=== PATIENT | female | born 1960 | race African-American/Black ===

== ENCOUNTER 2017-09-15 01:30 | Inpatient (IN) | payer MEDICARE, OTHER ==
[~2017-09-15] VITALS: Ht 165.1 cm; Wt 98.0 kg
[2017-09-15] VITALS (19 sets, daily range): BP systolic 115–129; BP diastolic 67–78; PULSE 85–116; RESP 20–38; TEMP 98.1–99.7; O2SAT 93–99
[~2017-09-15 01:30] MED LIST: AMLO10TA2 PO; BLOOD GLUCOSE T1 TES; GLYB5TAB3 PO; LANCETS; LEVA750T PO; METF1000 PO; PRED5PAK2 PO; SYMB80AE INH; VENTAER INH
[2017-09-15] MEDS ORDERED: SODIUM CHLOR 0.9% 1000 ML INJ 1,000 ML IV ONE ×2 (02:03→03:45)
[2017-09-15] MEDS ORDERED: SODIUM CHLOR 0.9% 1000 ML INJ 800 ML IV ONE (02:03)
[2017-09-15] MEDS: RESP: ALBUTEROL 2.5 MG/IPRATROPIUM 0.5 MG NEB (SCH) INH ×2 (02:17→02:19)
--- NOTE | 2017-09-15 02:23 | PD ---
HPI Chief Complaint: Respiratory Symptoms Time Seen by Provider: 02:03 Travel History International Travel<30 days: No Contact w/Intl Traveler<30days: No Traveled to known affect area: No History of Present Illness HPI 57-year-old female with history of asthma here for evaluation of cough, generalized malaise, generalized weakness. Symptoms have been worsening over the last week. Cough is productive of yellowish sputum. She is unsure if she has had a fever. There are no sick contacts. PFSH Past Medical History Asthma: Yes Autoimmune Disease: Yes (SARCOIDOSIS) Cancer: No Cardiovascular Problems: Yes High Cholesterol: Yes COPD: No Diabetes: Yes Patient Takes Glucophage: No (states has not been taking) Diminished Hearing: No Endocrine: Yes Gastrointestinal Disorders: No Genitourinary: No Hypertension: Yes Immune Disorder: No Implanted Vascular Access Dvce: No Musculoskeletal: No Neurologic: Yes Psychiatric: No Reproductive: No Respiratory: Yes Immunizations Current: Yes Sickle Cell Disease: Yes (sickle cell trait) Sleep Apnea: Yes (HAS BI PAP AT NIGHT NOT LATELY) ?: Not : 3 Para: 2 Miscarriage: 1 Tubal Ligation: Yes Past Surgical History Section: Yes (X2) Eye Surgery: Yes (LASER ERIDOTOMY) Gynecologic Surgery: Yes (C SECTION) Other Surgery: Yes (SINUS SURGERY) Social History Alcohol Use: No Tobacco Use: No (quit 2004) Substance Use: No Allergies-Medications (Allergen,Severity, Reaction): Coded Allergies: ketorolac (Unverified Allergy, Severe, 09/15/17) lisinopril (Unverified Allergy, Severe, Anaphylaxis, 09/15/17) acetaminophen (Unverified Allergy, Unknown, 09/15/17) *MDRO Multi-Drug Resistant Organism (Unverified Adverse Reaction, Unknown , 09/15/17) MRSA (ET Sputum) - 07/2014 Reported Meds & Prescriptions Reported Meds & Active Scripts Active Prednisone (48) 5 mg tab Dose Pack (Prednisone) 5 Mg Dspk 5 Mg PO DIRECTED Lancets 26G Twist Top (Lancets) 1 Mis Mis 1 Ea .ROUTE DIRECTED Blood Glucose Test Strips 1 Rand Rand 1 Ea .ROUTE DIRECTED Glyburide 5 Mg Tab 5 Mg PO BID Take with meals at the same time each day Reported Ventolin Hfa 18 GM Inh (Albuterol Sulfate) 90 Mcg/Act Aer 1 Puff INH Q4H PRN Metformin (Metformin HCl) 1,000 Mg Tab 1,000 Mg PO BIDPC With meals Symbicort Inh (Budesonide/Formoterol Fumarate) 80-4.5 Mcg/Act Aero 2 Puff INH Q12HR Amlodipine (Amlodipine Besylate) 10 Mg Tab 10 Mg PO DAILY Review of Systems Except as stated in HPI: all other systems reviewed are Neg Physical Exam Narrative GENERAL: Well-developed, well-nourished, no apparent distress. SKIN: Focused skin assessment warm/dry. HEAD: Atraumatic. Normocephalic. EYES: Pupils equal and round. No scleral icterus. No injection or drainage. ENT: No nasal bleeding or discharge. Mucous membranes pink and moist. NECK: Trachea midline. No JVD. CARDIOVASCULAR: Tachycardic, rate 107, regular. RESPIRATORY: No accessory muscle use. Clear to auscultation. Breath sounds equal bilaterally. GASTROINTESTINAL: Abdomen soft, non-tender, nondistended. MUSCULOSKELETAL: No obvious deformities. No clubbing. No cyanosis. No edema. NEUROLOGICAL: Awake and alert. No obvious cranial nerve deficits. Motor grossly within normal limits. Normal speech. PSYCHIATRIC: Appropriate mood and affect; insight and judgment normal. Data Data Last Documented VS Vital Signs Date Time Temp Pulse Resp B/P (MAP) Pulse Ox O2 Delivery O2 Flow Rate FiO2 09/15/17 02:48 109 20 95 Aerosol Mask 09/15/17 02:15 3.00 09/15/17 01:34 98.5 127/70 (89) Orders Orders Sepsis Workup Initiated (09/15/17 ) Complete Blood Count With Diff (09/15/17 02:03) Comprehensive Metabolic Panel (09/15/17 02:03) Prothrombin Time / Inr (Pt) (09/15/17 02:03) Act Partial Throm Time (Ptt) (09/15/17 02:03) Lactic Acid Sepsis Protocol (09/15/17 02:03) Ckmb (Isoenzyme) Profile (09/15/17 02:03) Troponin I (09/15/17 02:03) Urinalysis - C+S If Indicated (09/15/17 02:03) Influenzae A/B Antigen (09/15/17 02:03) Blood Culture (09/15/17 02:03) Chest, Single Ap (09/15/17 02:03) Ecg Monitoring (09/15/17 02:03) Iv Access Insert/Monitor (09/15/17 02:03) Oximetry (09/15/17 02:03) Sodium Chlor 0.9% 1000 Ml Inj (Ns 1000 M (09/15/17 02:03) Sodium Chlor 0.9% 1000 Ml Inj (Ns 1000 M (09/15/17 02:03) Albuterol-Ipratropium Neb (Duoneb Neb) (09/15/17 02:15) Ceftriaxone Inj (Rocephin Inj) (09/15/17 03:00) Azithromycin Inj (Zithromax Inj) (09/15/17 03:00) B-Type Natriuretic Peptide (09/15/17 02:55) CKMB (09/15/17 02:15) CKMB% (09/15/17 02:15) Sodium Chlor 0.9% 1000 Ml Inj (Ns 1000 M (09/15/17 03:45) Software Tools Build Engineer / Telemetry [email or web address] (09/15/17 03:38) ^ Insert Iv (09/15/17 03:38) Diet Npo (09/15/17 Breakfast) Sodium Chlor 0.9% 1000 Ml Inj (Ns 1000 M (09/15/17 03:38) Dext 5%-Nacl 0.9% 1000 Ml Inj (D5w-Ns 10 (09/15/17 03:38) Insulin Human Regular Inj (Novolin R Inj (09/15/17 03:45) Insulin Regular (Iv Infusion) (Novolin R (09/15/17 03:45) Potassium Chlor 40 Meq Premix (Kcl 40 Me (09/15/17 03:45) Potassium Chlor 40 Meq Premix (Kcl 40 Me (09/15/17 03:45) Potassium Chlor 20 Meq Premix (Kcl 20 Me (09/15/17 03:45) Potassium Chlor 20 Meq Premix (Kcl 20 Me (09/15/17 03:45) Potassium Chlor 20 Meq Premix (Kcl 20 Me (09/15/17 03:45) Potassium Chlor 20 Meq Premix (Kcl 20 Me (09/15/17 03:45) Potassium Chlor 20 Meq Premix (Kcl 20 Me (09/15/17 03:45) Potassium Chlor 20 Meq Premix (Kcl 20 Me (09/15/17 03:45) Sodium Bicarbonate 8.4% Inj (Sodium Bica (09/15/17 03:45) Sodium Bicarbonate 8.4% Inj (Sodium Bica (09/15/17 03:45) Sodium Phosphate Inj (Sodium Phosphate I (09/15/17 03:45) Hemoglobin (Hgb) A1c (09/15/17 03:38) Basic Metabolic Panel (Bmp) (09/15/17 08:38) Basic Metabolic Panel (Bmp) (09/15/17 14:38) Basic Metabolic Panel (Bmp) (09/15/17 20:38) Basic Metabolic Panel (Bmp) (09/16/17 02:38) Magnesium (Mg) (09/15/17 08:38) Magnesium (Mg) (09/15/17 14:38) Magnesium (Mg) (09/15/17 20:38) Magnesium (Mg) (09/16/17 02:38) Phosphorus (Po4) (09/15/17 08:38) Phosphorus (Po4) (09/15/17 14:38) Phosphorus (Po4) (09/15/17 20:38) Phosphorus (Po4) (09/16/17 02:38) Beta Hydroxybutyrate (Acetone) (09/15/17 14:38) Beta Hydroxybutyrate (Acetone) (09/16/17 02:38) Blood Gas Venous (Vbg) (09/15/17 03:38) Insulin Regular (Iv Infusion) (Novolin R (09/15/17 04:15) Labs Laboratory Tests Test 09/15/17 02:15 09/15/17 03:38 White Blood Count 6.8 TH/MM3 Red Blood Count 4.60 MIL/MM3 Hemoglobin 12.1 GM/DL Hematocrit 41.1 % Mean Corpuscular Volume 89.3 FL Mean Corpuscular Hemoglobin 26.3 PG Mean Corpuscular Hemoglobin Concent 29.4 % Red Cell Distribution Width 17.1 % Platelet Count 203 TH/MM3 Mean Platelet Volume 10.8 FL Neutrophils (%) (Auto) 64.1 % Lymphocytes (%) (Auto) 12.7 % Monocytes (%) (Auto) 22.8 % Eosinophils (%) (Auto) 0.1 % Basophils (%) (Auto) 0.3 % Neutrophils # (Auto) 4.4 TH/MM3 Lymphocytes # (Auto) 0.9 TH/MM3 Monocytes # (Auto) 1.5 TH/MM3 Eosinophils # (Auto) 0.0 TH/MM3 Basophils # (Auto) 0.0 TH/MM3 CBC Comment AUTO DIFF Differential Total Cells Counted 100 Neutrophils % (Manual) 39 % Band Neutrophils % 24 % Lymphocytes % 13 % Monocytes % 18 % Neutrophils # (Manual) 4.7 TH/MM3 Metamyelocytes 6 % Nucleated Red Blood Cells 1 /100 WBC Differential Comment FINAL DIFF MANUAL Toxic Vacuolation Dohle Bodies PRESENT Platelet Estimate NORMAL Platelet Morphology Comment NORMAL Red Cell Morphology Comment NORMAL Prothrombin Time 10.0 SEC Prothromb Time International Ratio 1.0 RATIO Activated Partial Thromboplast Time 30.1 SEC Blood Urea Nitrogen 32 MG/DL Creatinine 2.74 MG/DL Random Glucose 1275 MG/DL Total Protein 9.3 GM/DL Albumin 2.7 GM/DL Calcium Level 9.4 MG/DL Alkaline Phosphatase 110 U/L Aspartate Amino Transf (AST/SGOT) 12 U/L Alanine Aminotransferase (ALT/SGPT) 15 U/L Total Bilirubin 1.0 MG/DL Sodium Level 130 MEQ/L Potassium Level 4.5 MEQ/L Chloride Level 94 MEQ/L Carbon Dioxide Level 19.7 MEQ/L Anion Gap 16 MEQ/L Estimat Glomerular Filtration Rate 22 ML/MIN Lactic Acid Level 3.0 mmol/L Total Creatine Kinase 317 U/L Creatine Kinase MB 1.6 NG/ML Creatine Kinase MB % 0.5 % Troponin I LESS THAN 0.02 NG/ML Blood Gas Puncture Site Blood Gas Patient Temperature 98.6 Venous Blood pH 7.23 Venous Blood Partial Pressure CO2 48 mmHg Venous Blood Partial Pressure O2 25 mmHg Venous Blood HCO3 19 mmol/L Venous Blood Oxygen Saturation 35 % Venous Blood Oxygen Content 5.9 Vol % Venous Blood Base Excess -7.0 mmol/L Oxygen Delivery Device NASAL CANNULA Blood Gas Liter Flow 3 L/M MDM Medical Decision Making Medical Screen Exam Complete: Yes Emergency Medical Condition: Yes Medical Record Reviewed: Yes Differential Diagnosis Sepsis, pneumonia, PE, asthma exacerbation, bronchitis, ACS Narrative Course Initial vital signs show heart rate 160, blood pressure 127/70, pulse ox 93% on room air, oral temperature 98.5F. CBC: WBC 6.8, hemoglobin 12.1, hematocrit 41.1, platelets 203, band neutrophils 24%. CMP is remarkable for random glucose 1275, sodium 130, chloride 94, bicarb 19.7 , anion gap 16, BUN 32, creatinine 2.74, GFR 22, Lactic acid is 3.0. Chest x-ray: Bilateral lower lung zone pulmonary consolidation. Differential includes infection and pulmonary edema. Patient was given IV Rocephin and IV azithromycin. She was also provided 3 DuoNeb treatments with improvement in her respiratory status. She was given 3 L normal saline IV and started on a DKA protocol. Both the patient and the patient's daughter were made aware of all findings and plan for admission to the ICU for further treatment and evaluation. The patient states that she has not been on her oral hypoglycemics for about a month. Case discussed with distributing clerk Dr. Sanon who will admit the patient to his service. Critical Care Narrative Aggregate critical care time was 40 minutes. Time to perform other separately billable procedures was not included in the critical care time. My time did not include minutes spent treating any other patients simultaneously or on activities that did not directly contribute to the patient's treatment. The services I provided to this patient were to treat and/or prevent clinically significant deterioration that could result in: , permanent disability, worsening clinical condition, septic shock I provided critical care services requiring my management, as noted below: Chart data review, documentation time, medication orders and management, vital sign assessments/reviewing monitor data, ordering and reviewing lab tests, ordering and interpreting/reviewing x-rays and diagnostic studies, care of the patient and discussion of the patient with the admitting physicians. Diagnosis Primary Impression: Severe sepsis Additional Impressions: Pneumonia Qualified Codes: J18.9 - Pneumonia, unspecified organism Hyperglycemia Acute kidney injury Admitting Information Admitting Physician Requests: Admit Tiago Sheppard MD Sep 15, 2017 02:23
--- NOTE | 2017-09-15 02:42 | RADRPT ---
EXAM DATE/TIME: 09/15/2017 02:15 [facility] COMPARISON: CHEST SINGLE AP, May 09, 2016, 9:06. INDICATIONS : Cough, shortness of breath, weakness. MEDICAL HISTORY : Hypercholesterolemia. Hypertension Diabetes, Sickle cell, Asthma, SURGICAL HISTORY : Tubal ligation. section. ENCOUNTER: Initial ACUITY: 3 days PAIN SCORE: 2/10 LOCATION: Bilateral chest FINDINGS: 2 AP views of the chest. Moderate severity symmetric bilateral lower lung zone parenchymal opacity. F inding is similar to the prior study of April 2016. No evidence of pleural effusion or pneumothora x. Cardiomediastinal silhouette within normal limits. CONCLUSION: Bilateral lower lung zone pulmonary consolidation. Differential diagnosis includes infection and pulm onary edema. Barry Mittal MD on September 15, 2017 at 2:37 Board Certified Radiologist. This report was verified electronically.
[2017-09-15 02:49] LABS: AUTOMATED NEUTROPHIL # 4.4 TH/MM3 (1.8-7.7); BASOPHIL % 0.3 % (0.0-2.0); EOSINOPHIL % 0.1 % (0.0-4.0); HEMATOCRIT 41.1 % (35.0-46.0); HEMOGLOBIN 12.1 GM/DL (11.6-15.3); LYMPH % 12.7 % (9.0-44.0); LYMPHOCYTE # 0.9 TH/MM3 (1.0-4.8); MEAN CELL VOLUME 89.3 FL (80.0-100.0); MEAN CORPUSCULAR HEMOGLOBIN 26.3 PG (27.0-34.0); MEAN PLATELET VOLUME 10.8 FL (7.0-11.0); MONO % 22.8 % (0.0-8.0); MONOCYTE # 1.5 TH/MM3 (0-0.9); NEUT % 64.1 % (16.0-70.0); PLATELET COUNT 203 TH/MM3 (150-450); RED CELL DISTRIBUTION WIDTH 17.1 % (11.6-17.2); WHITE BLOOD COUNT 6.8 TH/MM3 (4.0-11.0)
[2017-09-15 02:52] LABS: MEAN CORPUSCULAR HGB CONC 29.4 % (32.0-36.0)
[2017-09-15] MEDS ORDERED: AZITHROMYCIN INJ 500 MG in SODIUM CHLOR 0.9% 250 ML INJ 250 ML IV ONE (03:00)
[2017-09-15] MEDS ORDERED: cefTRIAXone INJ 1,000 MG in SODIUM CHLORIDE 0.9% INJ 100 ML IV ONE (03:00)
[2017-09-15 03:13] LABS: AST (GOT) 12 U/L (15-37); BICARBONATE 19.7 MEQ/L (21.0-32.0); BLOOD UREA NITROGEN 32 MG/DL (7-18); CALCIUM 9.4 MG/DL (8.5-10.1); CHLORIDE 94 MEQ/L (98-107); CREATININE 2.74 MG/DL (0.50-1.00); GLOMERULAR FILTRATION RATE 22 ML/MIN (>89); SODIUM (NA) 130 MEQ/L (136-145)
[2017-09-15 03:27] LABS: ALKALINE PHOSPHATASE 110 U/L (45-117); ALT (GPT) 15 U/L (10-53); TOTAL PROTEIN 9.3 GM/DL (6.4-8.2); TROPONIN I LESS THAN 0.02 NG/ML (0.02-0.05)
[2017-09-15 03:32] LABS: GLUCOSE,RANDOM 1275 MG/DL (74-106)
[2017-09-15 03:34] LABS: BANDS 24 % (0-6); CORRECTED NUCLEATED RBC 1 /100 WBC (0-0); DOHLE BODIES PRESENT (NONE SEEN); LYMPHOCYTES 13 % (9-44); METAMYELOCYTES 6 % (0-1); MONOCYTES 18 % (0-8); NEUTROPHIL # MANUAL DIFF 4.7 TH/MM3 (1.8-7.7); NUCLEATED RED BLOOD CELL 1 (0-0); POLYS (SEG NEUTROPHILS) 39 % (16-70)
[2017-09-15 03:36] LABS: ALBUMIN 2.7 GM/DL (3.4-5.0)
[2017-09-15] MEDS ORDERED: DEXT 5%-NACL 0.9% 1000 ML INJ 1,000 ML IV SCH (03:38)
[2017-09-15] MEDS ORDERED: SODIUM BICARBONATE 8.4% SOLN 50 MEQ/50 ML VIAL IV PUSH PRN ×2 (03:45)
[2017-09-15] MEDS ORDERED: POTASSIUM CHLOR 40 MEQ PREMIX 100 ML IV PRN ×2 (03:45)
[2017-09-15] MEDS ORDERED: INSULIN HUMAN REGULAR 1,000 UNITS/10 ML VIAL IV PUSH ONE (03:45)
[2017-09-15] MEDS ORDERED: SODIUM PHOSPHATE INJ 15 MMOL in SODIUM CHLORIDE 0.9% INJ 100 ML IV PRN (03:45)
[2017-09-15] MEDS ORDERED: INSULIN REGULAR (IV INFUSION) 100 UNITS in SODIUM CHLORIDE 0.9% INJ 99 ML IV PRN ×3 (03:45→10:30)
[2017-09-15] MEDS ORDERED: POTASSIUM CHLOR 20 MEQ PREMIX 100 ML IV PRN ×6 (03:45)
[2017-09-15] MEDS ORDERED: ONDANSETRON HCL 4 MG/2 ML VIAL IV PUSH ONE (04:30)
[2017-09-15] MEDS: SODIUM CHLOR 0.9% 1000 ML INJ 1,000 ML IV SCH ×4 (04:45→15:34)
[2017-09-15 05:10] LABS: BILIRUBIN, URINE NEG (NEG); BLOOD, URINE SMALL (NEG); GLUCOSE,URINE 1000 mg/dL (NEG); KETONE, URINE 10 mg/dL (NEG); NITRITE,URINE NEG (NEG); URINE COLOR COLORLESS (YELLW/STRAW); URINE LEUKOCYTE ESTERASE NEG (NEG)
[2017-09-15] MEDS ORDERED: RESP: ALBUTEROL 2.5 MG/IPRATROPIUM 0.5 MG NEB (PRN) INH (05:15)
[2017-09-15] MEDS ORDERED: MISCELLANEOUS NURSING INFORMATION XX SCH (05:15)
[2017-09-15] MEDS ORDERED: CHLORHEXIDINE GLUCONATE 2 % 1 PACK (2 CLOTHS) TOP PRN (05:15)
[2017-09-15] MEDS ORDERED: SODIUM CHLORIDE 0.9% FLUSH 10 ML FLUSH IV FLUSH PRN (05:15)
--- NOTE | 2017-09-15 06:04 | HHI.HP ---
HPI Service Critical Care Medicine Primary Care Physician No Primary Care Physician Admission Diagnosis Sepsis, pneumonia, DKA Diagnosis: Chief Complaint: altered mental status, shortness of breath Travel History International Travel<30 Days: No Contact w/Intl Traveler <30 Da: No Traveled to Known Affected Are: No Sepsis Criteria SIRS Criteria (2 or more): Heart rate over 90, WBC > 66560, < 4000 or > 10% bands Sepsis Criteria (SIRS+source): Infect source susp/known Severe Sepsis (+one): Lactate >2 Criteria Outcome: Meets severe sepsis criteria History of Present Illness HPI 57-year-old female with history of asthma here for evaluation of cough, generalized malaise, generalized weakness. Symptoms have been worsening over the last week. Cough is productive of yellowish sputum. She is unsure if she has had a fever. There are no sick contacts. Patient was noted to have blood glucose around 1200 mg percent in the ER and a right lower lobe pneumonia. She did have an anion gap metabolic acidosis with an elevated lactic acid. Patient was started on DKA protocol with insulin drip and received about 3 L of normal saline IV fluid. She'll also initiated on empiric antibiotics with Rocephin and Zithromax. Patient was accepted for admission by critical care medicine service. When I evaluated the patient in the ER she was laying in the ER stretcher. She had a productive cough. She did not appear slightly tachypneic however not in major distress. She was requesting something to drink and said that she was feeling extremely thirsty. She reportedly stopped taking her oral hypoglycemic medications about a month ago. History PFSH Past Medical History Asthma: Yes Autoimmune Disease: Yes (SARCOIDOSIS) Cancer: No Cardiovascular Problems: Yes High Cholesterol: Yes COPD: No Diabetes: Yes Patient Takes Glucophage: No (states has not been taking) Diminished Hearing: No Endocrine: Yes Gastrointestinal Disorders: No Genitourinary: No Hypertension: Yes Immune Disorder: No Implanted Vascular Access Dvce: No Musculoskeletal: No Neurologic: Yes Psychiatric: No Reproductive: No Respiratory: Yes Immunizations Current: Yes Sickle Cell Disease: Yes (sickle cell trait) Sleep Apnea: Yes (HAS BI PAP AT NIGHT NOT LATELY) ?: Not : 3 Para: 2 Miscarriage: 1 Tubal Ligation: Yes Past Surgical History Section: Yes (X2) Eye Surgery: Yes (LASER ERIDOTOMY) Gynecologic Surgery: Yes (C SECTION) Other Surgery: Yes (SINUS SURGERY) Social History Alcohol Use: No Tobacco Use: No (quit 2004) Substance Use: No Allergies-Medications Allergies-Medications (Allergen,Severity, Reaction): Coded Allergies: ketorolac (Unverified Allergy, Severe, 09/15/17) lisinopril (Unverified Allergy, Severe, Anaphylaxis, 09/15/17) acetaminophen (Unverified Allergy, Unknown, 09/15/17) *MDRO Multi-Drug Resistant Organism (Unverified Adverse Reaction, Unknown , 09/15/17) MRSA (ET Sputum) - 07/2014 Reported Meds & Prescriptions Reported Meds & Active Scripts Active Prednisone (48) 5 mg tab Dose Pack (Prednisone) 5 Mg Dspk 5 Mg PO DIRECTED Lancets 26G Twist Top (Lancets) 1 Mis Mis 1 Ea .ROUTE DIRECTED Blood Glucose Test Strips 1 Rand Rand 1 Ea .ROUTE DIRECTED Glyburide 5 Mg Tab 5 Mg PO BID Take with meals at the same time each day Reported Ventolin Hfa 18 GM Inh (Albuterol Sulfate) 90 Mcg/Act Aer 1 Puff INH Q4H PRN Metformin (Metformin HCl) 1,000 Mg Tab 1,000 Mg PO BIDPC With meals Symbicort Inh (Budesonide/Formoterol Fumarate) 80-4.5 Mcg/Act Aero 2 Puff INH Q12HR Amlodipine (Amlodipine Besylate) 10 Mg Tab 10 Mg PO DAILY ROS Review of Systems Except as stated in HPI: all other systems reviewed are Neg Physical Exam Vital Signs Vital Signs Date Time Temp Pulse Resp B/P (MAP) Pulse Ox O2 Delivery O2 Flow Rate FiO2 09/15/17 04:59 111 20 123/77 (92) 96 Nasal Cannula 4.00 09/15/17 02:48 109 20 95 Aerosol Mask 09/15/17 02:15 97 Nasal Cannula 3.00 09/15/17 01:55 94 Nasal Cannula 4.00 09/15/17 01:34 98.5 116 28 127/70 (89) 93 Physical Exam Narrative GENERAL: Well-developed, well-nourished, no apparent distress. SKIN: Focused skin assessment warm/dry. HEAD: Atraumatic. Normocephalic. EYES: Pupils equal and round. No scleral icterus. No injection or drainage. ENT: No nasal bleeding or discharge. Mucous membranes pink and moist. NECK: Trachea midline. No JVD. CARDIOVASCULAR: Tachycardic, rate 107, regular. RESPIRATORY: No accessory muscle use. Good air entry bilaterally, scattered rhonchi more on the right, no wheezing or crackles GASTROINTESTINAL: Abdomen soft, non-tender, nondistended. MUSCULOSKELETAL: No obvious deformities. No clubbing. No cyanosis. No edema. NEUROLOGICAL: Awake and alert. No obvious cranial nerve deficits. Motor grossly within normal limits. Normal speech. PSYCHIATRIC: Appropriate mood and affect; insight and judgment normal. Laboratory Laboratory Tests Test 09/15/17 02:15 09/15/17 03:38 09/15/17 04:34 09/15/17 05:26 White Blood Count 6.8 Red Blood Count 4.60 Hemoglobin 12.1 Hematocrit 41.1 Mean Corpuscular Volume 89.3 Mean Corpuscular Hemoglobin 26.3 Mean Corpuscular Hemoglobin Concent 29.4 Red Cell Distribution Width 17.1 Platelet Count 203 Mean Platelet Volume 10.8 Neutrophils (%) (Auto) 64.1 Lymphocytes (%) (Auto) 12.7 Monocytes (%) (Auto) 22.8 Eosinophils (%) (Auto) 0.1 Basophils (%) (Auto) 0.3 Neutrophils # (Auto) 4.4 Lymphocytes # (Auto) 0.9 Monocytes # (Auto) 1.5 Eosinophils # (Auto) 0.0 Basophils # (Auto) 0.0 CBC Comment AUTO DIFF Differential Total Cells Counted 100 Neutrophils % (Manual) 39 Band Neutrophils % 24 Lymphocytes % 13 Monocytes % 18 Neutrophils # (Manual) 4.7 Metamyelocytes 6 Nucleated Red Blood Cells 1 Differential Comment FINAL DIFF MANUAL Toxic Vacuolation Dohle Bodies PRESENT Platelet Estimate NORMAL Platelet Morphology Comment NORMAL Red Cell Morphology Comment NORMAL Prothrombin Time 10.0 Prothromb Time International Ratio 1.0 Activated Partial Thromboplast Time 30.1 Blood Urea Nitrogen 32 Creatinine 2.74 Random Glucose 1275 Total Protein 9.3 Albumin 2.7 Calcium Level 9.4 Alkaline Phosphatase 110 Aspartate Amino Transf (AST/SGOT) 12 Alanine Aminotransferase (ALT/SGPT) 15 Total Bilirubin 1.0 Sodium Level 130 Potassium Level 4.5 Chloride Level 94 Carbon Dioxide Level 19.7 Anion Gap 16 Estimat Glomerular Filtration Rate 22 Lactic Acid Level 3.0 Total Creatine Kinase 317 Creatine Kinase MB 1.6 Creatine Kinase MB % 0.5 Troponin I LESS THAN 0.02 B-Type Natriuretic Peptide 4 Blood Gas Puncture Site Blood Gas Patient Temperature 98.6 Venous Blood pH 7.23 Venous Blood Partial Pressure CO2 48 Venous Blood Partial Pressure O2 25 Venous Blood HCO3 19 Venous Blood Oxygen Saturation 35 Venous Blood Oxygen Content 5.9 Venous Blood Base Excess -7.0 Oxygen Delivery Device NASAL CANNULA Blood Gas Liter Flow 3 Urine Color COLORLESS Urine Turbidity CLEAR Urine pH 5.0 Urine Specific [place] 1.027 Urine Protein TRACE Urine Glucose (UA) 1000 Urine Ketones 10 Urine Occult Blood SMALL Urine Nitrite NEG Urine Bilirubin NEG Urine Urobilinogen LESS THAN 2.0 Urine Leukocyte Esterase NEG Urine RBC LESS THAN 1 Microscopic Urinalysis Comment CATH-CULT NOT IND Date/Time Source Procedure Growth Status 09/15/17 02:15 Blood Peripheral Aerobic Blood Culture Pending Received 09/15/17 02:15 Blood Peripheral Anaerobic Blood Culture Pending Received 09/15/17 02:15 Nasal Washing Influenza Types A,B Antigen (FANY) - Final NEGATIVE FOR FLU A AND B ANTIGEN.... Complete 09/15/17 04:34 Urine Catheterized Urine Legionella Antigen Pending Received 09/15/17 04:34 Urine Catheterized Urine Streptococcus pneumoniae Antigen (M Pending Received Result Diagram: 09/15/17 0215 09/15/17 0215 Septic Shock Reassessment Septic shock perfusion: reassessment completed Caprini VTE Risk Assessment Caprini VTE Risk Assessment: Mod/High Risk (score >= 2) Caprini Risk Assessment Model Point Value = 1 Point Value = 2 Point Value = 3 Point Value = 5 Age 41-60 Minor surgery BMI > 25 kg/m2 Swollen legs Varicose veins or History of unexplained or recurrent spontaneous Oral contraceptives or hormone replacement Sepsis (< 1 month) Serious lung disease, including pneumonia (< 1 month) Abnormal pulmonary function Acute myocardial infarction Congestive heart failure (< 1 month) History of inflammatory bowel disease Medical patient at bed rest Age 61-74 Arthroscopic surgery Major open surgery (> 45 min) Laparoscopic surgery (> 45 min) Malignancy Confined to bed (> 72 hours) Immobilizing plaster cast Central venous access Age >= 75 History of VTE Family history of VTE Factor V Leiden Prothrombin [id number] Lupus anticoagulant Anticardiolipin antibodies Elevated serum homocysteine Heparin-induced thrombocytopenia Other congenital or acquired thrombophilia Stroke (< 1 month) Elective arthroplasty Hip, pelvis, or leg fracture Acute spinal cord injury (< 1 month) Prophylaxis Regimen Total Risk Factor Score Risk Level Prophylaxis Regimen 0-1 Low Early ambulation 2 Moderate Order ONE of the following: *Sequential Compression Device (SCD) *Heparin 5000 units SQ BID 3-4 Higher Order ONE of the following medications: *Heparin 5000 units SQ TID *Enoxaparin/Lovenox 40 mg SQ daily (WT < 150 kg, CrCl > 30 mL/min) *Enoxaparin/Lovenox 30 mg SQ daily (WT < 150 kg, CrCl > 10-29 mL/min) *Enoxaparin/Lovenox 30 mg SQ BID (WT < 150 kg, CrCl > 30 mL/min) AND/OR *Sequential Compression Device (SCD) 5 or more Highest Order ONE of the following medications: *Heparin 5000 units SQ TID (Preferred with Epidurals) *Enoxaparin/Lovenox 40 mg SQ daily (WT < 150 kg, CrCl > 30 mL/min) *Enoxaparin/Lovenox 30 mg SQ daily (WT < 150 kg, CrCl > 10-29 mL/min) *Enoxaparin/Lovenox 30 mg SQ BID (WT < 150 kg, CrCl > 30 mL/min) AND *Sequential Compression Device (SCD) Assessment and Plan Assessment and Plan 57-year-old female with: Uncontrolled diabetes mellitus with hyperosmolar state Anion gap metabolic acidosis Hyperlipidemia Sepsis Pneumonia History of sarcoidosis Hypertension Obstructive sleep apnea syndrome Plan: Neuro: Follow neuro status. Cardiovascular: Fluid resuscitation, watch for hypotension. Hold antihypertensives currently. Pulmonary: Supplemental O2, bronchodilators. ID: Follow-up blood cultures. Sputum cultures ordered. Check urine for strep pneumo and Legionella antigen. Check nasal washings for influenza A and B. Empiric antibiotic coverage with IV Rocephin and Zithromax. Renal/: IV hydration, strict intake output, monitor and replete elect lites, follow BUN creatinine. Heme: Follow CBC Endocrine: Continue DKA protocol with insulin drip. Prophylaxis: SCDs, Lovenox Condition critical Time spent on critical care excluding procedures 50 minutes Johann Sanon MD Sep 15, 2017 06:04
[2017-09-15] MEDS ORDERED: SODIUM CHLOR 0.45% 1000 ML INJ 1,000 ML IV ONE (06:15)
[2017-09-15] MEDS: CHLORHEXIDINE 0.12% (ORAL KIT) 15 ML CUP MT SCH ×2 (08:00→19:28)
[2017-09-15] MEDS: RESP: ALBUTEROL 2.5 MG/IPRATROPIUM 0.5 MG NEB (SCH) NEB ×3 (09:03→19:44)
[2017-09-15 09:35] LABS: ALBUMIN 2.6 GM/DL (3.4-5.0); ALKALINE PHOSPHATASE 101 U/L (45-117); ALT (GPT) 12 U/L (10-53); AST (GOT) 11 U/L (15-37); BICARBONATE 22.1 MEQ/L (21.0-32.0); BLOOD UREA NITROGEN 26 MG/DL (7-18); CALCIUM 8.7 MG/DL (8.5-10.1); CHLORIDE 109 MEQ/L (98-107); GLOMERULAR FILTRATION RATE 28 ML/MIN (>89); MAGNESIUM 2.7 MG/DL (1.5-2.5); PHOSPHORUS 1.7 MG/DL (2.5-4.9); SODIUM (NA) 141 MEQ/L (136-145); TOTAL BILIRUBIN ADULT 0.5 MG/DL (0.2-1.0); TOTAL PROTEIN 8.4 GM/DL (6.4-8.2)
[2017-09-15] MEDS: SODIUM CHLORIDE 0.9% FLUSH 10 ML FLUSH IV FLUSH SCH ×2 (09:38→21:25)
[2017-09-15] MEDS: ENOXAPARIN SODIUM 30 MG/0.3 ML SYRINGE SQ SCH (09:40)
[2017-09-15] MEDS: FAMOTIDINE 20 MG TAB PO SCH ×2 (09:40→21:25)
[2017-09-15 09:41] LABS: GLUCOSE,RANDOM 713 MG/DL (74-106)
[2017-09-15] MEDS ORDERED: DC Insulin drip 2 hrs post basal insulin dose ONE (09:45)
[2017-09-15] MEDS ORDERED: INSULIN DETEMIR 100 UNITS/ML VIAL SQ SCH ×2 (09:45→11:00)
[2017-09-15] MEDS ORDERED: DC previous DKA orders (HMC 1917) ONE (09:45)
[2017-09-15] MEDS ORDERED: GLUCAGON 1 MG/ML VIAL OTHER PRN ×3 (09:45→20:30)
[2017-09-15] MEDS ORDERED: DEXTROSE 50% IN WATER 50 ML VIAL(D50) IV PUSH PRN ×3 (09:45→20:30)
[2017-09-15] MEDS ORDERED: SODIUM PHOSPHATE INJ 30 MMOL in SODIUM CHLOR 0.9% 250 ML INJ 250 ML IV ONE (10:45)
[2017-09-15] MEDS: methylPREDNISolone SOD SUCC 40 MG/1 ML VIAL IV PUSH SCH ×2 (10:49→21:25)
[2017-09-15] MEDS ORDERED: RESP: ALBUTEROL 2.5 MG/3 ML NEB (PRN) NEB (11:00)
[2017-09-15] MEDS: INSULIN ASPART SUPPLEMENTAL SCALE SQ SCH ×3 (12:57→21:26)
--- NOTE | 2017-09-15 16:10 | EKG ---
Date Performed: 09/15/2017 Time Performed: 01:55:57 PTAGE: 57 years EKG: SINUS TACHYCARDIA POSSIBLE LEFT ATRIAL ENLARGEMENT ABNORMAL RHYTHM ECG NO PREVIOUS TRACING DOCTOR: Wander Craig Interpretating Date/Time 09/15/2017 16:09:29
[2017-09-15 18:04] LABS: BICARBONATE 21.8 MEQ/L (21.0-32.0); BLOOD UREA NITROGEN 19 MG/DL (7-18); CALCIUM 8.4 MG/DL (8.5-10.1); CHLORIDE 113 MEQ/L (98-107); CREATININE 1.56 MG/DL (0.50-1.00); GLOMERULAR FILTRATION RATE 42 ML/MIN (>89); GLUCOSE,RANDOM 406 MG/DL (74-106); MAGNESIUM 2.3 MG/DL (1.5-2.5); PHOSPHORUS 2.9 MG/DL (2.5-4.9); SODIUM (NA) 143 MEQ/L (136-145)
--- NOTE | 2017-09-15 19:19 | MB ---
cc: Wilbert Alberto MD DATE: 09/15/2017 DATE OF CONSULTATION: 09/15/2017 REQUESTING PHYSICIAN: Dr. Johann Sanon. REASON FOR CONSULTATION: Bronchial asthma exacerbation and sarcoidosis. HISTORY OF PRESENT ILLNESS: Ms. Khan is a 57-year-old female with a history of COPD, bronchial asthma and history of sarcoidosis. She is not sure how she was diagnosed. She never had any biopsy done. She does have bad asthma and has had bronchial thermoplasty done. She has a history of diabetes mellitus and recently she quit taking her medication because she did not get along with her primary care doctor. The patient came to the hospital with worsening shortness of breath, generalized malaise and weakness. She was evaluated in the hospital and was found to have DKA; her blood sugar was more than 1200. The patient was started on IV fluids, IV insulin drip. Now her sugar is better and drip is weaned off. LABORATORY DATA: Chest x-ray shows bilateral lower lung zone pulmonary consolidation. Her CBC showed WBC count 6.8, hemoglobin 12.1, hematocrit 41.0, MCV 89, platelet count 203. Sodium 143, potassium 4.5, chloride 113, CO2 of 21, BUN 19, creatinine 1.56. PAST MEDICAL HISTORY: Significant for history of diabetes mellitus, bronchial asthma, status post bronchial thermoplasty, sarcoidosis, . MEDICATIONS: She is currently taking Zithromax 500 mg a day, Rocephin 1 g a day, Symbicort 80/4.5 two puffs twice a day, Solu-Medrol 40 mg q. 12 hours, insulin 7 units, albuterol and Atrovent nebulizer treatment, Lovenox 30 mg a day, famotidine 10 mg twice a day. ALLERGIES: SHE IS ALLERGIC TO ACETAMINOPHEN, KETOROLAC, LISINOPRIL. SOCIAL HISTORY: She is single and lives with her daughter, has a history of smoking, which she quit a few years ago. No alcohol abuse. 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 FAMILY HISTORY: She has 3 children. REVIEW OF SYSTEMS: Normally she is up around and active. No seizure, stroke or epilepsy. PHYSICAL EXAMINATION: GENERAL: Well-built, well-nourished female, not in any acute distress. VITAL SIGNS: Her blood pressure is 115/70, heart rate 101, respirations 24, temperature 98.2. HEENT: Pupils are equal, round, reactive to light. Oral mucosa and nasal mucosa normal. NECK: Supple. JVP not raised. CHEST: She has bilateral expiratory rhonchi. CARDIOVASCULAR: S1, S2 normal. ABDOMEN: Benign. EXTREMITIES: No edema. IMPRESSION: 1. Bronchial asthma with exacerbation. 2. Basal infiltrate. 3. History of sarcoidosis, not clear how it was diagnosed. 4. Bronchial asthma, status post bronchial thermoplasty. 5. Diabetic ketoacidosis. 6. Diabetes mellitus. 7. Noncompliance to medication. PLAN: She is on Solu-Medrol 40 mg IV q. 12 hours; continue. Continue her antibiotic. Encourage her to use aerosol treatment, Symbicort twice a day. Monitor her blood sugar. Advise compliance to the medication. Supplemental oxygen. We will try to get her record to see how her sarcoidosis was diagnosed. Further treatment pending course in the hospital. Thank you, Dr. Johann Sanon, for this consult. MD YULIANA Ha/RAMON , 06:36 PM , 07:18 PM MTDMike
[2017-09-15] MEDS: CHLORHEXIDINE GLUCONATE 2 % 1 PACK (2 CLOTHS) TOP SCH (21:13)
[2017-09-15] MEDS: BUDESONIDE-FORMOTEROL 80/4.5 MCG INHALER INH SCH (21:25)
[2017-09-15] MEDS: INSULIN DETEMIR 100 UNITS/ML VIAL SQ SCH (21:26)
[2017-09-15 21:43] LABS: BICARBONATE 19.8 MEQ/L (21.0-32.0); CREATININE 1.65 MG/DL (0.50-1.00); MAGNESIUM 2.2 MG/DL (1.5-2.5); PHOSPHORUS 2.2 MG/DL (2.5-4.9)
[2017-09-16] VITALS (15 sets, daily range): BP systolic 123–158; BP diastolic 80–94; PULSE 61–88; RESP 18–27; TEMP 97.5–98.9; O2SAT 92–100
[2017-09-16] MEDS: SODIUM CHLOR 0.9% 1000 ML INJ 1,000 ML IV SCH (00:10)
[2017-09-16] MEDS: INSULIN ASPART SUPPLEMENTAL SCALE SQ SCH ×6 (01:37→21:11)
[2017-09-16] MEDS: RESP: ALBUTEROL 2.5 MG/IPRATROPIUM 0.5 MG NEB (SCH) NEB ×4 (03:20→21:42)
[2017-09-16] MEDS: cefTRIAXone INJ 1,000 MG in SODIUM CHLORIDE 0.9% INJ 100 ML IV SCH (04:10)
[2017-09-16] MEDS: AZITHROMYCIN INJ 500 MG in SODIUM CHLOR 0.9% 250 ML INJ 250 ML IV SCH (04:10)
[2017-09-16 06:06] LABS: AUTOMATED NEUTROPHIL # 3.7 TH/MM3 (1.8-7.7); BASOPHIL % 0.2 % (0.0-2.0); EOSINOPHIL % 0.1 % (0.0-4.0); HEMATOCRIT 31.5 % (35.0-46.0); HEMOGLOBIN 10.1 GM/DL (11.6-15.3); LYMPH % 20.8 % (9.0-44.0); LYMPHOCYTE # 1.1 TH/MM3 (1.0-4.8); MEAN CORPUSCULAR HEMOGLOBIN 26.1 PG (27.0-34.0); MEAN CORPUSCULAR HGB CONC 32.2 % (32.0-36.0); MEAN PLATELET VOLUME 9.8 FL (7.0-11.0); MONOCYTE # 0.3 TH/MM3 (0-0.9); NEUT % 72.9 % (16.0-70.0); PLATELET COUNT 166 TH/MM3 (150-450); RED BLOOD COUNT 3.89 MIL/MM3 (4.00-5.30); RED CELL DISTRIBUTION WIDTH 16.1 % (11.6-17.2); WHITE BLOOD COUNT 5.1 TH/MM3 (4.0-11.0)
[2017-09-16 06:27] LABS: BICARBONATE 22.3 MEQ/L (21.0-32.0); CREATININE 1.3 MG/DL (0.50-1.00); MAGNESIUM 2.3 MG/DL (1.5-2.5)
[2017-09-16 06:28] LABS: ALBUMIN 2.2 GM/DL (3.4-5.0); AST (GOT) 20 U/L (15-37); BICARBONATE 22.2 MEQ/L (21.0-32.0); BLOOD UREA NITROGEN 16 MG/DL (7-18); CALCIUM 8.1 MG/DL (8.5-10.1); CHLORIDE 112 MEQ/L (98-107); CREATININE 1.34 MG/DL (0.50-1.00); GLOMERULAR FILTRATION RATE 50 ML/MIN (>89); GLUCOSE,RANDOM 284 MG/DL (74-106); SODIUM (NA) 142 MEQ/L (136-145)
[2017-09-16 06:31] LABS: ALKALINE PHOSPHATASE 88 U/L (45-117); ALT (GPT) 16 U/L (10-53); TOTAL BILIRUBIN ADULT 0.3 MG/DL (0.2-1.0); TOTAL PROTEIN 7.9 GM/DL (6.4-8.2)
--- NOTE | 2017-09-16 06:34 | RADRPT ---
EXAM DATE/TIME: 09/16/2017 05:21 [place] COMPARISON: CHEST SINGLE AP, September 15, 2017, 2:15. INDICATIONS : Shortness of breath, possible pulmonary disease. MEDICAL HISTORY : Hypercholesterolemia. Hypertension Sickle Cell disease. Asthma Diabetes SURGICAL HISTORY : Tubal ligation. section. ENCOUNTER: Subsequent ACUITY: 2 days PAIN SCORE: 0/10 LOCATION: Bilateral chest FINDINGS: Single AP view of the chest. Bilateral lower lung zone pulmonary parenchymal opacity unchanged. No ev idence of pleural effusion or pneumothorax. Cardiomediastinal silhouette unchanged. CONCLUSION: No significant change in bilateral lower lung zone pulmonary parenchymal opacity. Barry Mittal MD on September 16, 2017 at 6:32 Board Certified Radiologist. This report was verified electronically.
[2017-09-16 07:24] LABS: BANDS 21 % (0-6); LYMPHOCYTES 22 % (9-44); MONOCYTES 2 % (0-8); MYELOCYTES 1 % (0-0); NEUTROPHIL # MANUAL DIFF 3.9 TH/MM3 (1.8-7.7); POLYS (SEG NEUTROPHILS) 54 % (16-70)
[2017-09-16] MEDS: CHLORHEXIDINE 0.12% (ORAL KIT) 15 ML CUP MT SCH ×2 (08:00→20:00)
[2017-09-16] MEDS: methylPREDNISolone SOD SUCC 40 MG/1 ML VIAL IV PUSH SCH ×2 (09:33→22:55)
[2017-09-16] MEDS: FAMOTIDINE 20 MG TAB PO SCH ×2 (09:34→21:10)
[2017-09-16] MEDS: INSULIN DETEMIR 100 UNITS/ML VIAL SQ SCH ×2 (09:34→21:12)
[2017-09-16] MEDS: ENOXAPARIN SODIUM 30 MG/0.3 ML SYRINGE SQ SCH (09:34)
[2017-09-16] MEDS: BUDESONIDE-FORMOTEROL 80/4.5 MCG INHALER INH SCH ×2 (09:34→21:12)
[2017-09-16] MEDS: SODIUM CHLORIDE 0.9% FLUSH 10 ML FLUSH IV FLUSH SCH ×2 (09:35→21:13)
[2017-09-16 13:46] LABS: HEMOGLOBIN A1C 17.9 % (4.3-6.0)
--- NOTE | 2017-09-16 15:31 | HHI.CCPN ---
Subjective Remarks/Hospital Course 57-year-old female with history of asthma here for evaluation of cough, generalized malaise, generalized weakness. Symptoms have been worsening over the last week. Cough is productive of yellowish sputum. She is unsure if she has had a fever. There are no sick contacts. Patient was noted to have blood glucose around 1200 mg percent in the ER and a right lower lobe pneumonia. She did have an anion gap metabolic acidosis with an elevated lactic acid. Patient was started on DKA protocol with insulin drip and received about 3 L of normal saline IV fluid. She'll also initiated on empiric antibiotics with Rocephin and Zithromax. Patient was accepted for admission by critical care medicine service. When I evaluated the patient in the ER she was laying in the ER stretcher. She had a productive cough. She did not appear slightly tachypneic however not in major distress. She was requesting something to drink and said that she was feeling extremely thirsty. She reportedly stopped taking her oral hypoglycemic medications about a month ago. Subjective: 09/16: Anion gap closed. Patient tolerating diet up out of bed to bedside commode. Pulmonary status much improved. Levemir increased to 20 units twice daily. Objective Vital Signs Date Time Temp Pulse Resp B/P (MAP) Pulse Ox O2 Delivery O2 Flow Rate FiO2 09/16/17 09:22 100 Nasal Cannula 3.00 09/16/17 06:00 62 09/16/17 04:00 97.5 21 129/80 (96) Intake and Output 09/16/17 09/16/17 09/17/17 08:00 16:00 00:00 Intake Total 3480 ml Output Total 1175 ml Balance 2305 ml Result Diagram: 09/16/17 0358 09/16/17 0358 Other Results Microbiology Date/Time Source Procedure Growth Status 09/15/17 02:15 Nasal Washing Influenza Types A,B Antigen (FANY) - Final NEGATIVE FOR FLU A AND B ANTIGEN.... Complete 09/15/17 04:34 Urine Catheterized Urine Legionella Antigen - Final PRESUMPTIVE NEGATIVE FOR LEGIONELLA P... Complete 09/15/17 04:34 Urine Catheterized Urine Streptococcus pneumoniae Antigen (M - Final PRESUMPTIVE NEGATIVE FOR STREPTOCOCCU... Complete Imaging Last Impressions Chest X-Ray 09/16/17 0600 Signed Impressions: Service Date/Time: Saturday, September 16, 2017 05:21 - CONCLUSION: No significant change in bilateral lower lung zone pulmonary parenchymal opacity. Barry Mittal MD Objective Remarks Narrative GENERAL: Well-developed, well-nourished, no apparent distress. SKIN: Focused skin assessment warm/dry. HEAD: Atraumatic. Normocephalic. EYES: Pupils equal and round. No scleral icterus. No injection or drainage. ENT: No nasal bleeding or discharge. Mucous membranes pink and moist. NECK: Trachea midline. No JVD. CARDIOVASCULAR: Regular rate and rhythm . RESPIRATORY: No accessory muscle use. Good air entry bilaterally, scattered rhonchi. GASTROINTESTINAL: Abdomen soft, non-tender, nondistended. MUSCULOSKELETAL: No obvious deformities. No clubbing. No cyanosis. No edema. NEUROLOGICAL: Awake and alert. No obvious cranial nerve deficits. Motor grossly within normal limits. Normal speech. PSYCHIATRIC: Appropriate mood and affect; insight and judgment normal. A/P Assessment and Plan 57-year-old female with: Uncontrolled diabetes mellitus with hyperosmolar state Anion gap metabolic acidosis Hyperlipidemia Sepsis Pneumonia History of sarcoidosis Hypertension Obstructive sleep apnea syndrome Plan: Neuro: Follow neuro status. Cardiovascular: Fluid resuscitation, watch for hypotension. Hold antihypertensives currently. Pulmonary: Supplemental O2, bronchodilators. Neurology consulted ID: Follow-up blood cultures. Sputum cultures ordered. Check urine for strep pneumo and Legionella antigen. Check nasal washings for influenza A and B. Empiric antibiotic coverage with IV Rocephin and Zithromax. Renal/: IV hydration discontinued , discontinue Woodson catheter strict intake output, monitor and replete electrolytes, follow BUN creatinine. Heme: Follow CBC Endocrine: Continue DKA protocol Prophylaxis: SCDs, Lovenox Level 2 follow up Plan transfer to [facility] Plan transfer to [facility] floor when bed available Physician Charline Lopez MD Sep 16, 2017 15:31
--- NOTE | 2017-09-16 18:08 | HHI.PR ---
Subjective Remarks 57 YOAA Female with Br asthma exac, DKA BS much better Breathing improved Weaned to NC has cough, congestion No fever Objective Vital Signs Vital Signs Date Time Temp Pulse Resp B/P (MAP) Pulse Ox O2 Delivery O2 Flow Rate FiO2 09/16/17 14:00 70 09/16/17 12:00 71 09/16/17 12:00 98.2 71 27 147/88 (107) 98 09/16/17 10:00 83 09/16/17 09:22 100 Nasal Cannula 3.00 09/16/17 08:00 97.8 61 21 147/90 (109) 100 09/16/17 08:00 61 09/16/17 07:00 99 Nasal Cannula 4.00 09/16/17 06:00 62 09/16/17 04:00 68 09/16/17 04:00 97.5 68 21 129/80 (96) 97 09/16/17 02:00 68 09/16/17 00:00 71 09/16/17 00:00 98.5 71 26 148/94 (112) 100 09/15/17 22:00 85 09/15/17 20:00 93 09/15/17 20:00 99.1 93 28 116/75 (89) 96 09/15/17 19:45 97 Nasal Cannula 3.00 09/15/17 19:00 97 Nasal Cannula 4.00 I/O 09/15/17 09/15/17 09/15/17 09/16/17 09/16/17 09/16/17 07:00 15:00 23:00 07:00 15:00 23:00 Intake Total 1000 ml 250 ml 3480 ml Output Total 2250 ml 1175 ml Balance 1000 ml -2000 ml 2305 ml Intake Oral 1480 ml IV Total 1000 ml 250 ml 2000 ml Output Urine Total 2250 ml 1175 ml # Bowel Movements 1 Result Diagram: 09/16/17 0358 09/16/17 0358 Objective Remarks GENERAL: WBWN AA female, NAD SKIN: Warm and dry. HEAD: Normocephalic. EYES: No scleral icterus. No injection or drainage. NECK: Supple, trachea midline. No JVD or lymphadenopathy. CARDIOVASCULAR: Regular rate and rhythm without murmurs, gallops, or rubs. RESPIRATORY: Breath sounds equal bilaterally. No accessory muscle use. Exp rhonchi GASTROINTESTINAL: Abdomen soft, non-tender, nondistended. MUSCULOSKELETAL: No cyanosis, or edema. BACK: Nontender without obvious deformity. No CVA tenderness. A/P Assessment and Plan IMPRESSION: 1. Bronchial asthma with exacerbation. 2. Basal infiltrate. 3. History of sarcoidosis, not clear how it was diagnosed. 4. Bronchial asthma, status post bronchial thermoplasty. 5. Diabetic ketoacidosis. 6. Diabetes mellitus. 7. Noncompliance to medication. PLAN: Aerosol nebs Cont Abx IV Solumedrol Monitor BS Supplement 02 Does't want to use JosellWilbert Schultz MD Sep 16, 2017 18:08
[2017-09-17] VITALS (9 sets, daily range): BP systolic 121–156; BP diastolic 80–97; PULSE 45–82; RESP 17–20; TEMP 97.3–98.1; O2SAT 94–97
[2017-09-17] MEDS: BENZONATATE 100 MG CAP PO PRN ×3 (01:54→17:47)
[2017-09-17] MEDS: INSULIN ASPART SUPPLEMENTAL SCALE SQ SCH ×6 (01:54→22:16)
[2017-09-17] MEDS: RESP: ALBUTEROL 2.5 MG/IPRATROPIUM 0.5 MG NEB (SCH) NEB ×3 (03:53→15:49)
[2017-09-17] MEDS: CHLORHEXIDINE GLUCONATE 2 % 1 PACK (2 CLOTHS) TOP SCH (04:00)
[2017-09-17] MEDS: cefTRIAXone INJ 1,000 MG in SODIUM CHLORIDE 0.9% INJ 100 ML IV SCH (04:11)
[2017-09-17] MEDS: AZITHROMYCIN INJ 500 MG in SODIUM CHLOR 0.9% 250 ML INJ 250 ML IV SCH (05:43)
[2017-09-17] MEDS: CHLORHEXIDINE 0.12% (ORAL KIT) 15 ML CUP MT SCH ×2 (08:00→20:00)
[2017-09-17] MEDS: FAMOTIDINE 20 MG TAB PO SCH ×2 (08:19→19:49)
[2017-09-17] MEDS: ENOXAPARIN SODIUM 30 MG/0.3 ML SYRINGE SQ SCH (08:20)
[2017-09-17] MEDS: INSULIN DETEMIR 100 UNITS/ML VIAL SQ SCH ×2 (08:20→19:48)
[2017-09-17] MEDS: SODIUM CHLORIDE 0.9% FLUSH 10 ML FLUSH IV FLUSH SCH ×2 (08:20→19:49)
[2017-09-17] MEDS: BUDESONIDE-FORMOTEROL 80/4.5 MCG INHALER INH SCH ×2 (08:21→19:47)
[2017-09-17] MEDS: methylPREDNISolone SOD SUCC 40 MG/1 ML VIAL IV PUSH SCH ×2 (09:34→22:16)
--- NOTE | 2017-09-17 10:42 | HHI.PR ---
Subjective Remarks in no acute distress. still with persistent cough. no fever. d/w the RN. Objective Vitals Vital Signs Date Time Temp Pulse Resp B/P (MAP) Pulse Ox O2 Delivery O2 Flow Rate FiO2 09/17/17 08:20 Room Air 09/17/17 08:00 98.1 63 20 136/88 (104) 96 09/17/17 04:05 45 09/17/17 04:00 97.4 68 17 149/97 (114) 95 09/17/17 00:00 97.4 82 17 121/81 (94) 94 09/16/17 23:48 84 09/16/17 21:43 94 09/16/17 21:30 Room Air 09/16/17 20:03 77 09/16/17 20:00 98.9 88 18 123/87 (99) 92 09/16/17 18:00 74 09/16/17 16:00 98.0 70 24 158/94 (115) 97 09/16/17 16:00 70 09/16/17 14:00 70 09/16/17 12:00 71 09/16/17 12:00 98.2 71 27 147/88 (107) 98 I/O 09/16/17 09/16/17 09/16/17 09/17/17 09/17/17 09/17/17 07:00 15:00 23:00 07:00 15:00 23:00 Intake Total 3480 ml 240 ml Output Total 1175 ml 1100 ml Balance 2305 ml -1100 ml 240 ml Intake Oral 1480 ml 240 ml IV Total 2000 ml Output Urine Total 1175 ml 1100 ml # Voids 2 # Bowel Movements 1 2 Result Diagram: 09/16/17 0358 09/16/17 0358 Imaging Last Impressions Chest X-Ray 09/16/17 0600 Signed Impressions: Service Date/Time: Saturday, September 16, 2017 05:21 - CONCLUSION: No significant change in bilateral lower lung zone pulmonary parenchymal opacity. Barry Mittal MD Objective Remarks GENERAL: This is a well-nourished, well-developed patient, in no apparent distress. CARDIOVASCULAR: Regular rate and regular rhythm without murmurs, gallops, or rubs. RESPIRATORY: bilateral wheezing GASTROINTESTINAL: Abdomen soft, non-tender, nondistended. Normal, active bowel sounds MUSCULOSKELETAL: Extremities without clubbing, cyanosis, or edema. NEURO: Alert & Oriented x4 to person, place, time, situation. Moves all ext x4 Medications and IVs Inpatient Medications Albuterol Sulfate (Albuterol Neb) 2.5 mg Q2HR NEB PRN NEB WHEEZING; Start at 11:00 Albuterol/ Ipratropium (Duoneb Neb) 1 ampule Q4HR NEB PRN INH SHORTNESS OF BREATH Last administered on 09/15/17at 06:45; Start 09/15/17 at 05:15 Azithromycin 500 mg/Sodium Chloride 250 ml @ 250 mls/hr Q24H IV Last administered on 09/17/17 05:43; Start 09/16/17 at 05:00 Benzonatate (Tessalon) 100 mg TID PRN PO cough Last administered on 09/17/17 09 :34; Start 09/17/17 at 00:30 Budesonide/ Formoterol Fumarate (Symbicort 80-4.5 Mcg Inh) 2 puff Q12HR INH Last administered on 09/17/17at 08:21; Start 09/15/17 at 21:00 Ceftriaxone Sodium 1000 mg/ Sodium Chloride 100 ml @ 200 mls/hr Q24H IV Last administered on 09/17/17at 04:11; Start 09/16/17 at 04:00 Chlorhexidine Gluconate (Chlorhexidine 2% Cloth) 3 pack UNSCH PRN TOP HYGIENIC CARE Last administered on 09/15/17at 06:42; Start 09/15/17 at 05:15 Chlorhexidine Gluconate (Peridex 0.12% Liq) 15 ml BID@08,20 MT ; Start 09/15/17 at 08:00 Dextrose (D50w (Vial) Inj) 50 ml UNSCH PRN IV PUSH HYPOGLYCEMIA-SEE COMMENTS; Start 09/15/17 at 20:30 Dextrose/Sodium Chloride 1,000 ml @ 200 mls/hr Q5H IV ; Start 09/15/17 at 03:38 ; Stop 09/15/17 at 10:22; Status DC Enoxaparin Sodium (Lovenox Inj) 30 mg Q24H SQ Last administered on 09/17/17at 08: 20; Start 09/15/17 at 09:00 Famotidine (Pepcid) 10 mg BID PO Last administered on 09/17/17at 08:19; Start 09/15/17 at 09:00 Glucagon (Glucagon Inj) 1 mg UNSCH PRN OTHER HYPOGLYCEMIA-SEE COMMENTS; Start 09/15/17 at 20:30 Insulin Aspart (NovoLOG SUPPLEMENTAL SCALE) 1 Q4H SQ Last administered on at 09:34; Start 09/15/17 at 22:00 Insulin Detemir (Levemir Inj) 20 units Q12HR SQ Last administered on 09/17/17at 08:20; Start 09/16/17 at 21:00 Insulin Human Regular (NovoLIN R INJ) 8 units BOLUS ONCE IV PUSH Last administered on 09/15/17at 04:45; Start 09/15/17 at 03:45; Stop 09/15/17 at 03:48; Status DC Insulin Human Regular 100 units/ Sodium Chloride 100 ml @ 11 mls/hr TITRATE PRN IV Blood Sugar Management; Start 09/15/17 at 10:30; Stop 09/15/17 at 12:26; Status DC Methylprednisolone Sodium Succinate (SoluMEDROL INJ) 40 mg Q12H IV PUSH Last administered on 09/17/17at 09:34; Start 09/15/17 at 11:00 Miscellaneous Information 1 ONCE ONCE .XX Last administered on 09/15/17at 09:45 ; Start 09/15/17 at 09:45; Stop 09/15/17 at 10:20; Status DC Ondansetron HCl (Zofran Inj) 4 mg ONCE ONCE IV PUSH Last administered on at 04:39; Start 09/15/17 at 04:30; Stop 09/15/17 at 04:31; Status DC Potassium Chloride 100 ml @ 50 mls/hr Q2H PRN IV SEE LABEL COMMENTS; Start 09/15/17 at 03:45; Stop 09/15/17 at 10:22; Status DC Sodium Bicarbonate (Sodium Bicarbonate 8.4% Inj) 50 meq UNSCH PRN IV PUSH SEE LABEL COMMENTS; Start 09/15/17 at 03:45; Stop 09/15/17 at 10:22; Status DC Sodium Chloride 1,000 ml @ 150 mls/hr Q6H40M IV Last administered on 09/16/17at 00:10; Start 09/15/17 at 11:00; Stop 09/16/17 at 06:36; Status DC Sodium Chloride (NS Flush) 2 ml BID IV FLUSH Last administered on 09/17/17at 08: 20; Start 09/15/17 at 09:00 Sodium Phosphate 15 mmol/Sodium Chloride 105 ml @ 25 mls/hr UNSCH PRN IV SEE LABEL COMMENTS; Start 09/15/17 at 03:45; Stop 09/15/17 at 10:22; Status DC Sodium Phosphate 30 mmol/Sodium Chloride 260 ml @ 43.333 mls/ hr ONCE ONCE IV Last administered on 09/15/17at 11:14; Start 09/15/17 at 10:45; Stop 09/15/17 at 16:44; Status DC A/P Assessment and Plan A/P Uncontrolled diabetes mellitus with hyperosmolar state increase levemir- continue accu-check with SSI. Sepsis due to Pneumonia continue with antibiotics. asthma exacerbation with history of sarcoidosis and sleep apnea continue with Symbicort, IV steroids and neb treatment- pulmonary following. Hypertension will resume amlodipine soon if BP stable. DVT prophylaxis with subq Lovenox Rowena Harris MD Sep 17, 2017 10:42
[2017-09-17] MEDS ORDERED: PHENOL 1.4% SOLN 180 ML BTL OROPHARYNG PRN (12:00)
--- NOTE | 2017-09-17 19:34 | HHI.PR ---
Subjective Remarks 57 YOAA Female with Br asthma exac, DKA BS much better Breathing improved Weaned to NC has cough, congestion No fever Tessalon not helping Objective Vital Signs Vital Signs Date Time Temp Pulse Resp B/P (MAP) Pulse Ox O2 Delivery O2 Flow Rate FiO2 09/17/17 16:00 97.3 58 18 156/87 (110) 97 09/17/17 12:00 98.1 77 18 148/88 (108) 94 09/17/17 08:20 Room Air 09/17/17 08:00 98.1 63 20 136/88 (104) 96 09/17/17 04:05 45 09/17/17 04:00 97.4 68 17 149/97 (114) 95 09/17/17 00:00 97.4 82 17 121/81 (94) 94 09/16/17 23:48 84 09/16/17 21:43 94 09/16/17 21:30 Room Air 09/16/17 20:03 77 09/16/17 20:00 98.9 88 18 123/87 (99) 92 I/O 09/16/17 09/16/17 09/16/17 09/17/17 09/17/17 09/17/17 07:00 15:00 23:00 07:00 15:00 23:00 Intake Total 3480 ml 240 ml 250 ml Output Total 1175 ml 1100 ml Balance 2305 ml -1100 ml 240 ml 250 ml Intake Oral 1480 ml 240 ml IV Total 2000 ml 250 ml Output Urine Total 1175 ml 1100 ml # Voids 2 # Bowel Movements 1 2 Result Diagram: 09/16/17 0358 09/16/17 0358 Objective Remarks GENERAL: WBWN AA female, NAD SKIN: Warm and dry. HEAD: Normocephalic. EYES: No scleral icterus. No injection or drainage. NECK: Supple, trachea midline. No JVD or lymphadenopathy. CARDIOVASCULAR: Regular rate and rhythm without murmurs, gallops, or rubs. RESPIRATORY: Breath sounds equal bilaterally. No accessory muscle use. Exp rhonchi GASTROINTESTINAL: Abdomen soft, non-tender, nondistended. MUSCULOSKELETAL: No cyanosis, or edema. BACK: Nontender without obvious deformity. No CVA tenderness. A/P Assessment and Plan IMPRESSION: 1. Bronchial asthma with exacerbation. 2. Basal infiltrate. 3. History of sarcoidosis, not clear how it was diagnosed. 4. Bronchial asthma, status post bronchial thermoplasty. 5. Diabetic ketoacidosis. 6. Diabetes mellitus. 7. Noncompliance to medication. PLAN: Aerosol nebs Cont Abx IV Solumedrol Monitor BS Supplement 02 Does't want to use Acapella Robitussin Dm 10cc Wilbert Gaspar MD Sep 17, 2017 19:34
[2017-09-18] VITALS (10 sets, daily range): BP systolic 127–171; BP diastolic 70–102; PULSE 46–75; RESP 17–20; TEMP 97.4–98.1; O2SAT 94–96
[2017-09-18] MEDS: INSULIN ASPART SUPPLEMENTAL SCALE SQ SCH ×5 (02:00→20:49)
[2017-09-18] MEDS: CHLORHEXIDINE GLUCONATE 2 % 1 PACK (2 CLOTHS) TOP SCH (03:04)
[2017-09-18] MEDS: RESP: ALBUTEROL 2.5 MG/IPRATROPIUM 0.5 MG NEB (SCH) NEB ×4 (04:00→21:17)
[2017-09-18] MEDS: cefTRIAXone INJ 1,000 MG in SODIUM CHLORIDE 0.9% INJ 100 ML IV SCH (04:22)
[2017-09-18] MEDS: BENZONATATE 100 MG CAP PO PRN (04:22)
[2017-09-18] MEDS: AZITHROMYCIN INJ 500 MG in SODIUM CHLOR 0.9% 250 ML INJ 250 ML IV SCH (04:23)
[2017-09-18] MEDS: CHLORHEXIDINE 0.12% (ORAL KIT) 15 ML CUP MT SCH ×2 (07:20→20:57)
[2017-09-18] MEDS: SODIUM CHLORIDE 0.9% FLUSH 10 ML FLUSH IV FLUSH SCH ×2 (08:15→20:51)
[2017-09-18] MEDS: FAMOTIDINE 20 MG TAB PO SCH ×2 (08:15→20:50)
[2017-09-18] MEDS: INSULIN DETEMIR 100 UNITS/ML VIAL SQ SCH ×2 (08:15→20:49)
[2017-09-18] MEDS: BUDESONIDE-FORMOTEROL 80/4.5 MCG INHALER INH SCH ×2 (08:16→20:50)
[2017-09-18] MEDS: ENOXAPARIN SODIUM 30 MG/0.3 ML SYRINGE SQ SCH (08:16)
--- NOTE | 2017-09-18 10:03 | HHI.PR ---
Subjective Remarks in no acute distress. however still with some sob and cough. afebrile. BP trend noted. d/w the RN. Objective Vitals Vital Signs Date Time Temp Pulse Resp B/P (MAP) Pulse Ox O2 Delivery O2 Flow Rate FiO2 09/18/17 08:00 97.4 64 18 164/102 (122) 94 162/100 (120) 09/18/17 05:04 94 21 09/18/17 04:00 97.7 60 18 171/91 (117) 95 09/18/17 03:54 61 09/18/17 00:00 97.6 46 20 158/85 (109) 96 09/17/17 23:57 46 09/17/17 21:10 Room Air 09/17/17 20:03 78 09/17/17 20:00 97.4 70 20 148/80 (102) 94 09/17/17 16:00 97.3 58 18 156/87 (110) 97 09/17/17 12:00 98.1 77 18 148/88 (108) 94 I/O 09/17/17 09/17/17 09/17/17 09/18/17 09/18/17 09/18/17 07:00 15:00 23:00 07:00 15:00 23:00 Intake Total 340 ml 250 ml 340 ml 2503 ml Balance 340 ml 250 ml 340 ml 2503 ml Intake Oral 240 ml 240 ml IV Total 100 ml 250 ml 100 ml 2503 ml # Voids 2 3 Result Diagram: 09/16/17 0358 09/16/17 0358 Imaging Last Impressions Chest X-Ray 09/16/17 0600 Signed Impressions: Service Date/Time: Saturday, September 16, 2017 05:21 - CONCLUSION: No significant change in bilateral lower lung zone pulmonary parenchymal opacity. Barry Mittal MD Objective Remarks GENERAL: This is a well-nourished, well-developed patient, in no apparent distress. CARDIOVASCULAR: Regular rate and regular rhythm without murmurs, gallops, or rubs. RESPIRATORY: bilateral wheezing GASTROINTESTINAL: Abdomen soft, non-tender, nondistended. Normal, active bowel sounds MUSCULOSKELETAL: Extremities without clubbing, cyanosis, or edema. NEURO: Alert & Oriented x4 to person, place, time, situation. Moves all ext x4 Medications and IVs Inpatient Medications Albuterol Sulfate (Albuterol Neb) 2.5 mg Q2HR NEB PRN NEB WHEEZING; Start at 11:00 Albuterol/ Ipratropium (Duoneb Neb) 1 ampule Q4HR NEB PRN INH SHORTNESS OF BREATH Last administered on 09/15/17at 06:45; Start 09/15/17 at 05:15 Azithromycin 500 mg/Sodium Chloride 250 ml @ 250 mls/hr Q24H IV Last administered on 09/18/17at 04:23; Start 09/16/17 at 05:00 Benzonatate (Tessalon) 100 mg TID PRN PO cough Last administered on 09/18/17 04 :22; Start 09/17/17 at 00:30 Budesonide/ Formoterol Fumarate (Symbicort 80-4.5 Mcg Inh) 2 puff Q12HR INH Last administered on 09/18/17at 08:16; Start 09/15/17 at 21:00 Ceftriaxone Sodium 1000 mg/ Sodium Chloride 100 ml @ 200 mls/hr Q24H IV Last administered on 09/18/17at 04:22; Start 09/16/17 at 04:00 Chlorhexidine Gluconate (Chlorhexidine 2% Cloth) 3 pack UNSCH PRN TOP HYGIENIC CARE Last administered on 09/15/17at 06:42; Start 09/15/17 at 05:15 Chlorhexidine Gluconate (Peridex 0.12% Liq) 15 ml BID@08,20 MT ; Start 09/15/17 at 08:00 Dextrose (D50w (Vial) Inj) 50 ml UNSCH PRN IV PUSH HYPOGLYCEMIA-SEE COMMENTS; Start 09/15/17 at 20:30 Dextrose/Sodium Chloride 1,000 ml @ 200 mls/hr Q5H IV ; Start 09/15/17 at 03:38 ; Stop 09/15/17 at 10:22; Status DC Enoxaparin Sodium (Lovenox Inj) 30 mg Q24H SQ Last administered on 09/18/17at 08: 16; Start 09/15/17 at 09:00 Famotidine (Pepcid) 10 mg BID PO Last administered on 09/18/17at 08:15; Start 09/15/17 at 09:00 Glucagon (Glucagon Inj) 1 mg UNSCH PRN OTHER HYPOGLYCEMIA-SEE COMMENTS; Start 09/15/17 at 20:30 Insulin Aspart (NovoLOG SUPPLEMENTAL SCALE) 1 Q4H SQ Last administered on at 05:30; Start 09/15/17 at 22:00 Insulin Detemir (Levemir Inj) 22 units Q12HR SQ Last administered on 09/18/17at 08:15; Start 09/17/17 at 21:00 Insulin Human Regular (NovoLIN R INJ) 8 units BOLUS ONCE IV PUSH Last administered on 09/15/17at 04:45; Start 09/15/17 at 03:45; Stop 09/15/17 at 03:48; Status DC Insulin Human Regular 100 units/ Sodium Chloride 100 ml @ 11 mls/hr TITRATE PRN IV Blood Sugar Management; Start 09/15/17 at 10:30; Stop 09/15/17 at 12:26; Status DC Methylprednisolone Sodium Succinate (SoluMEDROL INJ) 40 mg Q12H IV PUSH Last administered on 09/17/17at 22:16; Start 09/15/17 at 11:00 Miscellaneous Information 1 ONCE ONCE .XX Last administered on 09/15/17at 09:45 ; Start 09/15/17 at 09:45; Stop 09/15/17 at 10:20; Status DC Ondansetron HCl (Zofran Inj) 4 mg ONCE ONCE IV PUSH Last administered on at 04:39; Start 09/15/17 at 04:30; Stop 09/15/17 at 04:31; Status DC Phenol (Chloraseptic [place]) 2 spray Q2H PRN OROPHARYNG SORE THROAT Last administered on 09/17/17at 12:06; Start 09/17/17 at 12:00 Potassium Chloride 100 ml @ 50 mls/hr Q2H PRN IV SEE LABEL COMMENTS; Start 09/15/17 at 03:45; Stop 09/15/17 at 10:22; Status DC Sodium Bicarbonate (Sodium Bicarbonate 8.4% Inj) 50 meq UNSCH PRN IV PUSH SEE LABEL COMMENTS; Start 09/15/17 at 03:45; Stop 09/15/17 at 10:22; Status DC Sodium Chloride 1,000 ml @ 150 mls/hr Q6H40M IV Last administered on 09/16/17at 00:10; Start 09/15/17 at 11:00; Stop 09/16/17 at 06:36; Status DC Sodium Chloride (NS Flush) 2 ml BID IV FLUSH Last administered on 09/18/17at 08: 15; Start 09/15/17 at 09:00 Sodium Phosphate 15 mmol/Sodium Chloride 105 ml @ 25 mls/hr UNSCH PRN IV SEE LABEL COMMENTS; Start 09/15/17 at 03:45; Stop 09/15/17 at 10:22; Status DC Sodium Phosphate 30 mmol/Sodium Chloride 260 ml @ 43.333 mls/ hr ONCE ONCE IV Last administered on 09/15/17at 11:14; Start 09/15/17 at 10:45; Stop 09/15/17 at 16:44; Status DC A/P Assessment and Plan A/P Uncontrolled diabetes mellitus with hyperosmolar state increased levemir- continue accu-check with SSI. Sepsis due to Pneumonia continue with antibiotics. blood cultures negative and sputum culture with normal respiratory axel. asthma exacerbation with history of sarcoidosis and sleep apnea continue with Symbicort, IV steroids and neb treatment- pulmonary following. acute kidney injury; improving- avoid nephrotoxins. will monitor. Hypertension ; will resume Amlodipine- continue to monitor and adjust the regimen as needed. DVT prophylaxis with subq Lovenox Discharge Planning still with sob and cough/ not ready for discharge today. Rowena Harris MD Sep 18, 2017 10:03
[2017-09-18] MEDS ORDERED: DEXTROSE 50% IN WATER 50 ML VIAL(D50) IV PUSH PRN (10:30)
[2017-09-18] MEDS ORDERED: GLUCAGON 1 MG/ML VIAL OTHER PRN (10:30)
[2017-09-18] MEDS: methylPREDNISolone SOD SUCC 40 MG/1 ML VIAL IV PUSH SCH ×2 (11:06→23:06)
[2017-09-18] MEDS: guaiFENesin SOLUTION 200 MG/10 ML CUP PO PRN ×4 (11:06→23:08)
--- NOTE | 2017-09-18 17:56 | HHI.PR ---
Subjective Remarks 57 YOAA Female with Br asthma exac, DKA BS much better Breathing improved has cough, congestion No fever Tessalon not helping Still has cough On RA, comfortabe. Objective Vital Signs Vital Signs Date Time Temp Pulse Resp B/P (MAP) Pulse Ox O2 Delivery O2 Flow Rate FiO2 09/18/17 12:00 97.7 69 18 147/82 (103) 95 09/18/17 08:00 97.4 64 18 164/102 (122) 94 162/100 (120) 09/18/17 05:04 94 21 09/18/17 04:00 97.7 60 18 171/91 (117) 95 09/18/17 03:54 61 09/18/17 00:00 97.6 46 20 158/85 (109) 96 09/17/17 23:57 46 09/17/17 21:10 Room Air 09/17/17 20:03 78 09/17/17 20:00 97.4 70 20 148/80 (102) 94 I/O 09/17/17 09/17/17 09/17/17 09/18/17 09/18/17 09/18/17 07:00 15:00 23:00 07:00 15:00 23:00 Intake Total 340 ml 250 ml 340 ml 2503 ml Balance 340 ml 250 ml 340 ml 2503 ml Intake Oral 240 ml 240 ml IV Total 100 ml 250 ml 100 ml 2503 ml # Voids 2 3 Result Diagram: 09/16/1735709/16/17357 Objective Remarks GENERAL: WBWN AA female, NAD SKIN: Warm and dry. HEAD: Normocephalic. EYES: No scleral icterus. No injection or drainage. NECK: Supple, trachea midline. No JVD or lymphadenopathy. CARDIOVASCULAR: Regular rate and rhythm without murmurs, gallops, or rubs. RESPIRATORY: Breath sounds equal bilaterally. No accessory muscle use. Exp rhonchi GASTROINTESTINAL: Abdomen soft, non-tender, nondistended. MUSCULOSKELETAL: No cyanosis, or edema. BACK: Nontender without obvious deformity. No CVA tenderness. A/P Assessment and Plan IMPRESSION: 1. Bronchial asthma with exacerbation. 2. Basal infiltrate. 3. History of sarcoidosis, not clear how it was diagnosed. 4. Bronchial asthma, status post bronchial thermoplasty. 5. Diabetic ketoacidosis. 6. Diabetes mellitus. 7. Noncompliance to medication. PLAN: Aerosol nebs Cont Abx IV Solumedrol Monitor BS Supplement 02 Does't want to use Acapella Artitussin Dm 10cc qid Stable on RA Wilbert Alberto MD Sep 18, 2017 17:56
[2017-09-19] VITALS (8 sets, daily range): BP systolic 108–140; BP diastolic 64–87; PULSE 54–85; RESP 17–19; TEMP 96.1–98; O2SAT 94–99
[2017-09-19] MEDS: guaiFENesin SOLUTION 200 MG/10 ML CUP PO PRN (03:32)
[2017-09-19] MEDS: CHLORHEXIDINE GLUCONATE 2 % 1 PACK (2 CLOTHS) TOP SCH (03:33)
[2017-09-19] MEDS: cefTRIAXone INJ 1,000 MG in SODIUM CHLORIDE 0.9% INJ 100 ML IV SCH (03:33)
[2017-09-19] MEDS: AZITHROMYCIN INJ 500 MG in SODIUM CHLOR 0.9% 250 ML INJ 250 ML IV SCH (04:12)
[2017-09-19] MEDS: RESP: ALBUTEROL 2.5 MG/IPRATROPIUM 0.5 MG NEB (SCH) NEB ×2 (04:19→08:22)
[2017-09-19] MEDS: CHLORHEXIDINE 0.12% (ORAL KIT) 15 ML CUP MT SCH ×2 (08:00→21:16)
[2017-09-19] MEDS: INSULIN DETEMIR 100 UNITS/ML VIAL SQ SCH ×2 (08:56→23:11)
[2017-09-19] MEDS: BUDESONIDE-FORMOTEROL 80/4.5 MCG INHALER INH SCH ×2 (08:56→21:15)
[2017-09-19] MEDS: INSULIN ASPART SUPPLEMENTAL SCALE SQ SCH ×4 (08:56→21:00)
[2017-09-19] MEDS: ENOXAPARIN SODIUM 30 MG/0.3 ML SYRINGE SQ SCH (08:57)
[2017-09-19] MEDS: FAMOTIDINE 20 MG TAB PO SCH ×2 (08:57→21:14)
[2017-09-19] MEDS: SODIUM CHLORIDE 0.9% FLUSH 10 ML FLUSH IV FLUSH SCH ×2 (08:59→21:15)
[2017-09-19] MEDS ORDERED: SODIUM CHLOR 0.45% 1000 ML INJ 1,000 ML IV SCH (11:15)
--- NOTE | 2017-09-19 11:16 | HHI.PR ---
Subjective Remarks The patient complains of a lot of congestion. She has been coughing a lot. She does feel better. She states her blood sugars are quite elevated secondary to the steroids. She has been ambulatory. Discussed with nursing. Objective Vitals Vital Signs Date Time Temp Pulse Resp B/P (MAP) Pulse Ox O2 Delivery O2 Flow Rate FiO2 09/19/17 08:00 98.0 60 18 139/86 (103) 94 09/19/17 04:19 94 21 09/19/17 04:00 97.8 54 18 140/87 (104) 98 09/19/17 03:57 57 09/19/17 00:00 97.2 75 18 124/73 (90) 96 09/18/17 23:58 68 09/18/17 21:18 95 21 09/18/17 20:00 97.5 75 17 127/70 (89) 95 09/18/17 16:00 98.1 71 20 130/75 (93) 94 09/18/17 12:00 97.7 69 18 147/82 (103) 95 I/O 09/18/17 09/18/17 09/18/17 09/19/17 09/19/17 09/19/17 07:00 15:00 23:00 07:00 15:00 23:00 Intake Total 340 ml 2503 ml 2200 ml 580 ml Balance 340 ml 2503 ml 2200 ml 580 ml Intake Oral 240 ml 2200 ml 580 ml IV Total 100 ml 2503 ml # Voids 3 6 3 # Bowel Movements 3 Result Diagram: 09/16/17 0358 09/16/17 0358 Imaging Last Impressions Chest X-Ray 09/16/17 0600 Signed Impressions: Service Date/Time: Saturday, September 16, 2017 05:21 - CONCLUSION: No significant change in bilateral lower lung zone pulmonary parenchymal opacity. Barry Mittal MD Objective Remarks GENERAL: This is a well-nourished, well-developed patient, in no apparent distress. HEENT: NC, AT. CARDIOVASCULAR: Regular rate and regular rhythm without murmurs, gallops, or rubs. RESPIRATORY: bilateral wheezing. GASTROINTESTINAL: Abdomen soft, non-tender, nondistended. Normoactive bowel sounds. MUSCULOSKELETAL: Extremities without clubbing, cyanosis, or edema. NEURO: Alert & Oriented x4 to person, place, time, situation. Moves all ext x4. PSYCH: Mood and affect appropriate. Medications and IVs Current Medications Medications (Trade) Dose Ordered Sig/Laura Route Start Time Stop Time Status Last Admin (NS Flush) 2 ml UNSCH PRN IV FLUSH 09/15/17 05:15 (NS Flush) 2 ml BID IV FLUSH 09/15/17 09:00 09/19/17 08:59 (Duoneb Neb) 1 ampule Q4HR NEB PRN INH 09/15/17 05:15 09/15/17 06:45 (Peridex 0.12% Liq) 15 ml BID@08,20 MT 09/15/17 08:00 09/18/17 20:57 (Pepcid) 10 mg BID PO 09/15/17 09:00 09/19/17 08:57 (Lovenox Inj) 30 mg Q24H SQ 09/15/17 09:00 09/19/17 08:57 Miscellaneous Information 1 Q361D XX 09/15/17 05:15 09/15/17 05:15 (Chlorhexidine 2% Cloth) 3 pack Taper DAILY@04 TOP 09/16/17 04:00 09/12/18 03:59 09/15/17 21:13 (Chlorhexidine 2% Cloth) 3 pack UNSCH PRN TOP 09/15/17 05:15 09/15/17 06:42 Ceftriaxone Sodium 1000 mg/ Sodium Chloride 100 ml @ 200 mls/hr Q24H IV 09/16/17 04:00 09/19/17 03:33 Azithromycin 500 mg/Sodium Chloride 250 ml @ 250 mls/hr Q24H IV 09/16/17 05:00 09/19/17 04:12 (Symbicort 80-4.5 Mcg Inh) 2 puff Q12HR INH 09/15/17 21:00 09/19/17 08:56 (Albuterol Neb) 2.5 mg Q2HR NEB PRN NEB 09/15/17 11:00 (Chloraseptic [place]) 2 spray Q2H PRN OROPHARYNG 09/17/17 12:00 09/17/17 12:06 (Levemir Inj) 22 units Q12HR SQ 09/17/17 21:00 09/19/17 08:56 (Norvasc) 10 mg DAILY PO 09/18/17 10:00 09/19/17 08:56 (D50w (Vial) Inj) 50 ml UNSCH PRN IV PUSH 09/18/17 10:30 (Glucagon Inj) 1 mg UNSCH PRN OTHER 09/18/17 10:30 (NovoLOG SUPPLEMENTAL SCALE) 1 ACHS SLIDING SCALE SQ 09/18/17 12:00 09/19/17 08:56 (Deltasone) 20 mg BID PO 09/19/17 21:00 UNV (NovoLOG INJ) 3 units TIDAC SQ 09/19/17 12:00 UNV (Robitussin Ac 200-20 Mg/10 ml Liq) 10 ml Q6H PRN PO 09/19/17 11:15 UNV A/P Assessment and Plan Uncontrolled diabetes mellitus with hyperosmolar state Glucose poorly controlled on steroids. - increased Levemir to 22 units BID. Add aspart 3 units with meals. - continue accu-check with SSI. - wean steroids. Sepsis Due to pneumonia. Sputum culture with normal axel. - continue with antibiotics. Asthma exacerbation With history of sarcoidosis and sleep apnea. Pulmonology consult appreciated. - continue with Symbicort and nebs as needed. - wean prednisone to 20 mg BID. - follow up with pulmonology. - IS, encourage ambulation. - walk test. Acute kidney injury Improving. - avoid nephrotoxins. - 1 L 1/2 NS. Hypertension Stable. - resumed amlodipine. - continue to monitor and adjust the regimen as needed. - wean off steroids. DVT prophylaxis with subq Lovenox Discharge Planning Await walk test, improvement in symptoms Chevy Rivas DO Sep 19, 2017 11:16
[2017-09-19] MEDS: INSULIN ASPART 1,000 UNITS/10 ML VIAL SQ SCH ×2 (12:20→18:25)
[2017-09-19] MEDS: guaiFENesin/CODEINE SYRUP 200 MG/20 MG/10 ML CUP PO PRN ×3 (12:20→23:52)
--- NOTE | 2017-09-19 20:40 | HHI.PR ---
Subjective Remarks 57 YOAA Female with Br asthma exac, DKA BS much better Breathing improved has cough, congestion No fever Still has cough On RA, comfortabe. Objective Vital Signs Vital Signs Date Time Temp Pulse Resp B/P (MAP) Pulse Ox O2 Delivery O2 Flow Rate FiO2 09/19/17 16:00 97.6 76 17 108/65 (79) 95 09/19/17 12:00 96.1 85 19 114/66 (82) 95 09/19/17 09:00 Room Air 09/19/17 08:00 98.0 60 18 139/86 (103) 94 09/19/17 04:19 94 21 09/19/17 04:00 97.8 54 18 140/87 (104) 98 09/19/17 03:57 57 09/19/17 00:00 97.2 75 18 124/73 (90) 96 09/18/17 23:58 68 09/18/17 21:18 95 21 I/O 09/18/17 09/18/17 09/18/17 09/19/17 09/19/17 09/19/17 07:00 15:00 23:00 07:00 15:00 23:00 Intake Total 340 ml 2503 ml 2200 ml 580 ml 1200 ml Balance 340 ml 2503 ml 2200 ml 580 ml 1200 ml Intake Oral 240 ml 2200 ml 580 ml 1200 ml IV Total 100 ml 2503 ml # Voids 3 6 3 7 # Bowel Movements 3 2 Result Diagram: 09/16/17 0358 09/16/17 0358 Objective Remarks GENERAL: WBWN AA female, NAD SKIN: Warm and dry. HEAD: Normocephalic. EYES: No scleral icterus. No injection or drainage. NECK: Supple, trachea midline. No JVD or lymphadenopathy. CARDIOVASCULAR: Regular rate and rhythm without murmurs, gallops, or rubs. RESPIRATORY: Breath sounds equal bilaterally. No accessory muscle use. Exp rhonchi GASTROINTESTINAL: Abdomen soft, non-tender, nondistended. MUSCULOSKELETAL: No cyanosis, or edema. BACK: Nontender without obvious deformity. No CVA tenderness. A/P Assessment and Plan IMPRESSION: 1. Bronchial asthma with exacerbation. 2. Basal infiltrate. 3. History of sarcoidosis, not clear how it was diagnosed. 4. Bronchial asthma, status post bronchial thermoplasty. 5. Diabetic ketoacidosis. 6. Diabetes mellitus. 7. Noncompliance to medication. PLAN: Aerosol nebs Cont Abx Monitor BS Supplement 02 Does't want to use Acapella Robitussin Dm 10cc qid Stable on RA PO Steroids Wilbert Alberto MD Sep 19, 2017 20:40
[2017-09-19] MEDS: predniSONE 20 MG TAB PO SCH (21:14)
[2017-09-20] VITALS (14 sets, daily range): BP systolic 107–154; BP diastolic 66–82; PULSE 51–78; RESP 14–20; TEMP 97.3–98.9; O2SAT 97–100
[2017-09-20] MEDS: cefTRIAXone INJ 1,000 MG in SODIUM CHLORIDE 0.9% INJ 100 ML IV SCH (03:28)
[2017-09-20] MEDS: CHLORHEXIDINE GLUCONATE 2 % 1 PACK (2 CLOTHS) TOP SCH (03:29)
[2017-09-20] MEDS: AZITHROMYCIN INJ 500 MG in SODIUM CHLOR 0.9% 250 ML INJ 250 ML IV SCH (04:12)
[2017-09-20] MEDS: INSULIN ASPART 1,000 UNITS/10 ML VIAL SQ SCH ×3 (08:00→17:00)
[2017-09-20] MEDS: CHLORHEXIDINE 0.12% (ORAL KIT) 15 ML CUP MT SCH ×2 (08:00→20:00)
[2017-09-20] MEDS: INSULIN ASPART SUPPLEMENTAL SCALE SQ SCH ×4 (08:00→20:50)
[2017-09-20] MEDS: ENOXAPARIN SODIUM 30 MG/0.3 ML SYRINGE SQ SCH (08:34)
[2017-09-20] MEDS: predniSONE 20 MG TAB PO SCH ×2 (08:35→20:43)
[2017-09-20] MEDS: SODIUM CHLORIDE 0.9% FLUSH 10 ML FLUSH IV FLUSH SCH ×2 (08:35→20:43)
[2017-09-20] MEDS: BUDESONIDE-FORMOTEROL 80/4.5 MCG INHALER INH SCH ×2 (08:35→20:49)
[2017-09-20] MEDS: FAMOTIDINE 20 MG TAB PO SCH ×2 (08:35→20:43)
[2017-09-20] MEDS: INSULIN DETEMIR 100 UNITS/ML VIAL SQ SCH ×2 (08:36→20:45)
[2017-09-20 10:47] LABS: HEMATOCRIT 38.8 % (35.0-46.0); HEMOGLOBIN 12.4 GM/DL (11.6-15.3); MEAN CELL VOLUME 81.1 FL (80.0-100.0); MEAN CORPUSCULAR HEMOGLOBIN 25.8 PG (27.0-34.0); MEAN CORPUSCULAR HGB CONC 31.9 % (32.0-36.0); MEAN PLATELET VOLUME 9.6 FL (7.0-11.0); PLATELET COUNT 235 TH/MM3 (150-450); RED BLOOD COUNT 4.79 MIL/MM3 (4.00-5.30); RED CELL DISTRIBUTION WIDTH 15.5 % (11.6-17.2); WHITE BLOOD COUNT 11.7 TH/MM3 (4.0-11.0)
[2017-09-20 11:11] LABS: BICARBONATE 22.8 MEQ/L (21.0-32.0); CALCIUM 9.1 MG/DL (8.5-10.1); CREATININE 1.36 MG/DL (0.50-1.00); MAGNESIUM 2.3 MG/DL (1.5-2.5)
--- NOTE | 2017-09-20 12:09 | HHI.PR ---
Subjective Remarks The patient was still coughing a lot. She said she did a walk test yesterday. She did not feel ready to go home yet. Discussed with nursing. Objective Vitals Vital Signs Date Time Temp Pulse Resp B/P (MAP) Pulse Ox O2 Delivery O2 Flow Rate FiO2 09/20/17 10:24 58 09/20/17 08:08 78 09/20/17 08:00 97.6 66 16 120/76 (91) 97 09/20/17 07:36 Room Air 09/20/17 04:17 98.9 73 20 154/82 (106) 97 09/20/17 00:00 97.6 70 18 107/66 (80) 97 09/19/17 21:31 21 09/19/17 20:00 97.9 77 18 115/64 (81) 99 09/19/17 16:00 97.6 76 17 108/65 (79) 95 I/O 09/19/17 09/19/17 09/19/17 09/20/17 09/20/17 09/20/17 07:00 15:00 23:00 07:00 15:00 23:00 Intake Total 580 ml 1200 ml 780 ml Balance 580 ml 1200 ml 780 ml Intake Oral 580 ml 1200 ml 780 ml # Voids 3 7 3 # Bowel Movements 2 Result Diagram: 09/20/1730 09/20/17 0918 Imaging Last Impressions Chest X-Ray 09/16/17 0600 Signed Impressions: Service Date/Time: Saturday, September 16, 2017 05:21 - CONCLUSION: No significant change in bilateral lower lung zone pulmonary parenchymal opacity. Barry Mittal MD Objective Remarks GENERAL: This is a well-nourished, well-developed patient, in no apparent distress. Coughing a lot. HEENT: NC, AT. CARDIOVASCULAR: Regular rate and regular rhythm without murmurs, gallops, or rubs. RESPIRATORY: bilateral wheezing. GASTROINTESTINAL: Abdomen soft, non-tender, nondistended. Normoactive bowel sounds. MUSCULOSKELETAL: Extremities without clubbing, cyanosis, or edema. NEURO: Alert & Oriented x4 to person, place, time, situation. Moves all ext x4. PSYCH: Mood and affect appropriate. Medications and IVs Current Medications Medications (Trade) Dose Ordered Sig/Laura Route Start Time Stop Time Status Last Admin (NS Flush) 2 ml UNSCH PRN IV FLUSH 09/15/17 05:15 (NS Flush) 2 ml BID IV FLUSH 09/15/17 09:00 09/20/17 08:35 (Duoneb Neb) 1 ampule Q4HR NEB PRN INH 09/15/17 05:15 09/15/17 06:45 (Peridex 0.12% Liq) 15 ml BID@08,20 MT 09/15/17 08:00 09/19/17 21:16 (Pepcid) 10 mg BID PO 09/15/17 09:00 09/20/17 08:35 (Lovenox Inj) 30 mg Q24H SQ 09/15/17 09:00 09/19/17 08:57 Miscellaneous Information 1 Q361D XX 09/15/17 05:15 09/15/17 05:15 (Chlorhexidine 2% Cloth) 3 pack Taper DAILY@04 TOP 09/16/17 04:00 09/12/18 03:59 09/15/17 21:13 (Chlorhexidine 2% Cloth) 3 pack UNSCH PRN TOP 09/15/17 05:15 09/15/17 06:42 Ceftriaxone Sodium 1000 mg/ Sodium Chloride 100 ml @ 200 mls/hr Q24H IV 09/16/17 04:00 09/20/17 03:28 Azithromycin 500 mg/Sodium Chloride 250 ml @ 250 mls/hr Q24H IV 09/16/17 05:00 09/20/17 04:12 (Symbicort 80-4.5 Mcg Inh) 2 puff Q12HR INH 09/15/17 21:00 09/20/17 08:35 (Albuterol Neb) 2.5 mg Q2HR NEB PRN NEB 09/15/17 11:00 (Chloraseptic [place]) 2 spray Q2H PRN OROPHARYNG 09/17/17 12:00 09/17/17 12:06 (Levemir Inj) 22 units Q12HR SQ 09/17/17 21:00 09/20/17 08:36 (Norvasc) 10 mg DAILY PO 09/18/17 10:00 09/20/17 08:35 (D50w (Vial) Inj) 50 ml UNSCH PRN IV PUSH 09/18/17 10:30 (Glucagon Inj) 1 mg UNSCH PRN OTHER 09/18/17 10:30 (NovoLOG SUPPLEMENTAL SCALE) 1 ACHS SLIDING SCALE SQ 09/18/17 12:00 09/20/17 08:00 (Deltasone) 20 mg BID PO 09/19/17 21:00 09/20/17 08:35 (NovoLOG INJ) 3 units TIDAC SQ 09/19/17 12:00 09/20/17 08:00 (Robitussin Ac 200-20 Mg/10 ml Liq) 10 ml Q6H PRN PO 09/19/17 11:15 09/19/17 23:52 A/P Assessment and Plan Uncontrolled diabetes mellitus with hyperosmolar state Glucose poorly controlled on steroids. - increased Levemir to 22 units BID. Add aspart 3 units with meals. Improved. - continue accu-check with SSI. - wean steroids. Sepsis Due to pneumonia. Sputum culture with normal axel. - continue with antibiotics. Asthma exacerbation With history of sarcoidosis and sleep apnea. Pulmonology consult appreciated. Still with significant cough. - continue with Symbicort and nebs as needed. - wean prednisone to 20 mg BID. - follow up with pulmonology. - IS, encourage ambulation. - walk test. - Robitussin with codeine. Acute kidney injury Improving. Seems like the pt has a chronic component. S/p IVFs. - avoid nephrotoxins. Hypertension Stable. - resumed amlodipine. - continue to monitor and adjust the regimen as needed. - wean off steroids. DVT prophylaxis with subq Lovenox Discharge Planning Await walk test, improvement in symptoms Chevy Rivas DO Sep 20, 2017 12:09
[2017-09-20] MEDS: guaiFENesin/CODEINE SYRUP 200 MG/20 MG/10 ML CUP PO PRN ×2 (12:23→20:49)
--- NOTE | 2017-09-20 20:52 | HHI.PR ---
Subjective Remarks 57 YOAA Female with Br asthma exac, DKA BS much better Breathing improved No fever On RA, comfortabe. Objective Vital Signs Vital Signs Date Time Temp Pulse Resp B/P (MAP) Pulse Ox O2 Delivery O2 Flow Rate FiO2 09/20/17 18:30 60 09/20/17 16:21 64 09/20/17 16:00 97.3 62 17 142/81 (101) 99 09/20/17 14:53 58 09/20/17 12:13 60 09/20/17 12:00 97.6 51 17 132/69 (90) 97 09/20/17 10:24 58 09/20/17 08:08 78 09/20/17 08:00 97.6 66 16 120/76 (91) 97 09/20/17 07:36 Room Air 09/20/17 04:17 98.9 73 20 154/82 (106) 97 09/20/17 00:00 97.6 70 18 107/66 (80) 97 09/19/17 21:31 21 I/O 09/19/17 09/19/17 09/19/17 09/20/17 09/20/17 09/20/17 06:59 14:59 22:59 06:59 14:59 22:59 Intake Total 580 ml 1200 ml 780 ml 1200 ml Output Total 8 ml Balance 580 ml 1200 ml 780 ml 1192 ml Intake Oral 580 ml 1200 ml 780 ml 1200 ml Output Urine Total 8 ml # Voids 3 7 3 # Bowel Movements 2 2 Result Diagram: 09/20/1730 09/20/1718 Objective Remarks GENERAL: WBWN AA female, NAD SKIN: Warm and dry. HEAD: Normocephalic. EYES: No scleral icterus. No injection or drainage. NECK: Supple, trachea midline. No JVD or lymphadenopathy. CARDIOVASCULAR: Regular rate and rhythm without murmurs, gallops, or rubs. RESPIRATORY: Breath sounds equal bilaterally. No accessory muscle use. Exp rhonchi GASTROINTESTINAL: Abdomen soft, non-tender, nondistended. MUSCULOSKELETAL: No cyanosis, or edema. BACK: Nontender without obvious deformity. No CVA tenderness. A/P Assessment and Plan IMPRESSION: 1. Bronchial asthma with exacerbation. 2. Basal infiltrate. 3. History of sarcoidosis, not clear how it was diagnosed. 4. Bronchial asthma, status post bronchial thermoplasty. 5. Diabetic ketoacidosis. 6. Diabetes mellitus. 7. Noncompliance to medication. PLAN: Aerosol nebs Cont Abx Monitor BS Supplement 02 Stable on RA PO Steroids Stable from Pulm standpoint I will sign off Wilbert Alberto MD Sep 20, 2017 20:52
[2017-09-21] VITALS: BP 130/62; PULSE 57; RESP 14; TEMP 97; O2SAT 100
[2017-09-21 03:39] VITALS: PULSE 105
[2017-09-21] MEDS: AZITHROMYCIN INJ 500 MG in SODIUM CHLOR 0.9% 250 ML INJ 250 ML IV SCH (03:57)
[2017-09-21] MEDS: CHLORHEXIDINE GLUCONATE 2 % 1 PACK (2 CLOTHS) TOP SCH (03:57)
[2017-09-21] MEDS: cefTRIAXone INJ 1,000 MG in SODIUM CHLORIDE 0.9% INJ 100 ML IV SCH (03:57)
[2017-09-21 04:00] VITALS: BP 128/71; PULSE 50; RESP 14; TEMP 97.7; O2SAT 96
[2017-09-21] MEDS: guaiFENesin/CODEINE SYRUP 200 MG/20 MG/10 ML CUP PO PRN (04:03)
[2017-09-21 07:30] VITALS: BP 140/90; PULSE 60; RESP 19; TEMP 97.8; O2SAT 95
[2017-09-21] MEDS: CHLORHEXIDINE 0.12% (ORAL KIT) 15 ML CUP MT SCH (08:00)
[2017-09-21] MEDS: INSULIN ASPART 1,000 UNITS/10 ML VIAL SQ SCH (08:07)
[2017-09-21] MEDS: INSULIN DETEMIR 100 UNITS/ML VIAL SQ SCH (08:08)
[2017-09-21] MEDS: BUDESONIDE-FORMOTEROL 80/4.5 MCG INHALER INH SCH (08:11)
[2017-09-21] MEDS: predniSONE 20 MG TAB PO SCH (08:14)
[2017-09-21] MEDS: FAMOTIDINE 20 MG TAB PO SCH (08:15)
[2017-09-21] MEDS: ENOXAPARIN SODIUM 30 MG/0.3 ML SYRINGE SQ SCH (08:24)
[2017-09-21] MEDS: SODIUM CHLORIDE 0.9% FLUSH 10 ML FLUSH IV FLUSH SCH (08:24)
[2017-09-21] MEDS: INSULIN ASPART SUPPLEMENTAL SCALE SQ SCH (08:26)
[2017-09-21] MEDS ORDERED: SYMB80AE INH (11:01)
[2017-09-21] MEDS ORDERED: GUAI100S5 PO ×2 (11:01→11:04)
[2017-09-21] MEDS ORDERED: CEFU1TAB18 PO (11:01)
[2017-09-21] MEDS ORDERED: VENTAER INH (11:01)
[2017-09-21] MEDS ORDERED: BLOOD GLUCOSE M1 KIT (11:01)
[2017-09-21] MEDS ORDERED: PRED20 PO (11:05)
--- NOTE | 2017-09-21 11:13 | HHI.DCPOC ---
Discharge Care Plan Diagnosis: (1) Acute kidney injury (2) Diabetes mellitus (3) Pneumonia (4) Asthma exacerbation Goals to Promote Your Health * To prevent worsening of your condition and complications * To maintain your health at the optimal level Directions to Meet Your Goals Take your medications as prescribed Follow your dietary instruction Follow activity as directed Keep your appointments as scheduled Take your immunizations and boosters as scheduled If your symptoms worsen call your PCP, if no PCP go to Urgent Care Center or Emergency Room Smoking is Dangerous to Your Health. Avoid second hand smoke Call the 24-hour hour crisis hotline for domestic abuse at Chevy Rivas DO Sep 21, 2017 11:13
--- NOTE | 2017-09-21 11:27 | HHI.DS ---
Discharge Summary Admission Date Sep 15, 2017 at 04:19 Discharge Date: Sep 21, 2017 Admitting Diagnosis Sepsis, pneumonia, DKA (1) Asthma exacerbation ICD Code: J45.901 - Asthma exacerbation Status: Acute (2) Acute kidney injury ICD Code: N17.9 - Acute kidney failure, unspecified Status: Acute (3) Severe sepsis ICD Code: A41.9 - Severe sepsis; R65.20 - Severe sepsis without septic shock Status: Acute (4) Diabetes mellitus ICD Code: E11.9 - Diabetes mellitus Status: Acute (5) Pneumonia ICD Code: J18.9 - Pneumonia Diagnosis: Principal Status: Acute Procedures None Brief History - From Admission HPI 57-year-old female with history of asthma here for evaluation of cough, generalized malaise, generalized weakness. Symptoms have been worsening over the last week. Cough is productive of yellowish sputum. She is unsure if she has had a fever. There are no sick contacts. Patient was noted to have blood glucose around 1200 mg percent in the ER and a right lower lobe pneumonia. She did have an anion gap metabolic acidosis with an elevated lactic acid. Patient was started on DKA protocol with insulin drip and received about 3 L of normal saline IV fluid. She'll also initiated on empiric antibiotics with Rocephin and Zithromax. Patient was accepted for admission by critical care medicine service. When I evaluated the patient in the ER she was laying in the ER stretcher. She had a productive cough. She did not appear slightly tachypneic however not in major distress. She was requesting something to drink and said that she was feeling extremely thirsty. She reportedly stopped taking her oral hypoglycemic medications about a month ago. History PFSH Past Medical History Asthma: Yes Autoimmune Disease: Yes (SARCOIDOSIS) Cancer: No Cardiovascular Problems: Yes High Cholesterol: Yes COPD: No Diabetes: Yes Patient Takes Glucophage: No (states has not been taking) Diminished Hearing: No Endocrine: Yes Gastrointestinal Disorders: No Genitourinary: No Hypertension: Yes Immune Disorder: No Implanted Vascular Access Dvce: No Musculoskeletal: No Neurologic: Yes Psychiatric: No Reproductive: No Respiratory: Yes Immunizations Current: Yes Sickle Cell Disease: Yes (sickle cell trait) Sleep Apnea: Yes (HAS BI PAP AT NIGHT NOT LATELY) ?: Not : 3 Para: 2 Miscarriage: 1 Tubal Ligation: Yes Past Surgical History Section: Yes (X2) Eye Surgery: Yes (LASER ERIDOTOMY) Gynecologic Surgery: Yes (C SECTION) Other Surgery: Yes (SINUS SURGERY) Social History Alcohol Use: No Tobacco Use: No (quit 2004) Substance Use: No Allergies-Medications Allergies-Medications (Allergen,Severity, Reaction): Coded Allergies: ketorolac (Unverified Allergy, Severe, 09/15/17) lisinopril (Unverified Allergy, Severe, Anaphylaxis, 09/15/17) acetaminophen (Unverified Allergy, Unknown, 09/15/17) *MDRO Multi-Drug Resistant Organism (Unverified Adverse Reaction, Unknown , 09/15/17) MRSA (ET Sputum) - 07/2014 Reported Meds & Prescriptions Reported Meds & Active Scripts Active Prednisone (48) 5 mg tab Dose Pack (Prednisone) 5 Mg Dspk 5 Mg PO DIRECTED Lancets 26G Twist Top (Lancets) 1 Mis Mis 1 Ea .ROUTE DIRECTED Blood Glucose Test Strips 1 Rand Rand 1 Ea .ROUTE DIRECTED Glyburide 5 Mg Tab 5 Mg PO BID Take with meals at the same time each day Reported Ventolin Hfa 18 GM Inh (Albuterol Sulfate) 90 Mcg/Act Aer 1 Puff INH Q4H PRN Metformin (Metformin HCl) 1,000 Mg Tab 1,000 Mg PO BIDPC With meals Symbicort Inh (Budesonide/Formoterol Fumarate) 80-4.5 Mcg/Act Aero 2 Puff INH Q12HR Amlodipine (Amlodipine Besylate) 10 Mg Tab 10 Mg PO DAILY ROS Review of Systems Except as stated in HPI: all other systems reviewed are Neg CBC/BMP: 09/20/17 0930 09/20/17 0918 Significant Findings Laboratory Tests Test 09/20/17 09:18 09/20/17 09:30 Blood Urea Nitrogen 24 MG/DL (7-18) Creatinine 1.36 MG/DL (0.50-1.00) Random Glucose 205 MG/DL (74-106) Chloride Level 108 MEQ/L (98-107) Estimat Glomerular Filtration Rate 49 ML/MIN (>89) White Blood Count 11.7 TH/MM3 (4.0-11.0) Mean Corpuscular Hemoglobin 25.8 PG (27.0-34.0) Mean Corpuscular Hemoglobin Concent 31.9 % (32.0-36.0) Imaging Last Impressions Chest X-Ray 09/16/17 0600 Signed Impressions: Service Date/Time: Monday, September 16, 2017 05:21 - CONCLUSION: No significant change in bilateral lower lung zone pulmonary parenchymal opacity. Barry Mittal MD PE at Discharge GENERAL: This is a well-nourished, well-developed patient, in no apparent distress. HEENT: NC, AT. CARDIOVASCULAR: Regular rate and regular rhythm without murmurs, gallops, or rubs. RESPIRATORY: Bilateral wheezing. GASTROINTESTINAL: Abdomen soft, non-tender, nondistended. Normoactive bowel sounds. MUSCULOSKELETAL: Extremities without clubbing, cyanosis, or edema. NEURO: Alert & Oriented x4 to person, place, time, situation. Moves all ext x4. PSYCH: Mood and affect appropriate. Pt update on day of discharge The patient said her cough was better. She said she was ready to go home. She says she has nebulizers at home. She said that she does not check her blood sugar at home. Discussed with nursing. Hospital Course Uncontrolled diabetes mellitus with hyperosmolar state A1c was 17.9%. We increased Levemir to 22 units BID and added aspart 3 units with meals. Improved. We continued Accu-checks and an insulin sliding scale. We weaned steroids. The pt says she does not check her blood sugar at home. She refused to be discharged on insulin. She did not want to speak with the hospital educator. She will be discharged with a script for a glucometer and kit. She will continue her home metformin and glyburide. She will follow up with her PCP. Sepsis Due to pneumonia. Sputum culture with normal axle. She will complete a course of antibiotics. Asthma exacerbation With history of sarcoidosis and sleep apnea. Pulmonology was consulted. She was continued on Symbicort and received nebs as needed. We weaned steroids to PO prednisone. We encouraged IS and ambulation. She passed a home oxygen walk test. Her symptoms improved with Robitussin/ codeine. She will follow up with pulmonology as an outpt. Acute kidney injury S/p IVFs. We avoided nephrotoxins. She will follow up with her PCP. Pt Condition on Discharge: Stable Discharge Disposition: Discharge Home Discharge Time: > 30 minutes Discharge Instructions DIET: Follow Instructions for: Diabetic Diet Activities you can perform: Weight Bearing as Rocio Follow up Referrals: PCP Follow-up - 1 Week [facility] informed me to let the patient know to call the day they would like to be seen. The office opens at 8:00am provide the patient with telphone number and office address. Informed patient to schedule appointment within 1 week. Pulmonology - 2 Weeks with Wilbert Alberto MD New Medications: Blood Glucose Monitoring W/Device (Blood Glucose Monitoring W/Device) 1 Kit Kit KIT .XX DIRECTED for Blood Sugar Management, #1 0 Refills Cefuroxime (Ceftin) 250 Mg Tab 250 MG PO BID for Infection, #4 TAB Codeine Phosphate/Guaifenesin (Guaifen-Codeine 100-10 mg/5 ml) 10 Mg-100 Mg/5 Ml Liquid 10 ML PO Q4HR PRN for COUGH, #118 ML 0 Refills Prednisone (Prednisone) 20 Mg Tab 20 MG PO DAILY for Broncospasm for 5 Days, #5 TAB 0 Refills Continued Medications: Albuterol 18 GM Inh (Ventolin Hfa 18 GM Inh) 90 Mcg/Act Aer 1 PUFF INH Q4H PRN for WHEEZING, #1 INHALER 0 Refills (This prescription has been renewed) Amlodipine (Amlodipine) 10 Mg Tab 10 MG PO DAILY for Blood Pressure Management, #30 TAB 0 Refills Budesonide-Formoterol Inh (Symbicort Inh) 80-4.5 Mcg/Act Aero 2 PUFF INH Q12HR for Asthma Management, #1 INHALER 0 Refills (This prescription has been renewed) Glyburide (Glyburide) 5 Mg Tab 5 MG PO BID for Blood Sugar Management, #60 TAB 0 Refills Take with meals at the same time each day Metformin (Metformin) 1,000 Mg Tab 1000 MG PO BIDPC for Blood Sugar Management, #60 TAB 0 Refills With meals Discontinued Medications: Prednisone (48) 5 mg tab Dose Pack (Prednisone (48) 5 mg tab Dose Pack) 5 Mg Dspk 5 MG PO DIRECTED for Inflammation, #1 DSPK 0 Refills Chevy Rivas DO Sep 21, 2017 11:27
== END 2017-09-21 13:08 | disposition home or self-care (01) | DRG 871 ==
LOC: NEPC 01:30 → NEDA 04:19 → HIMN 06:15 → N07B 09-16 18:50
PROVIDERS: ADMIT Hospitalist; ATTEND Hospitalist
DX: A41.9 Sepsis, unspecified organism (principal); J18.9 Pneumonia, unspecified organism; E11.00 Type 2 diabetes mellitus with hyperosmolarity without nonketotic hyperglycemic-hyperosmolar coma (NKHHC); Z79.84 Long term (current) use of oral hypoglycemic drugs; N17.9 Acute kidney failure, unspecified; J45.901 Unspecified asthma with (acute) exacerbation; R65.20 Severe sepsis without septic shock; I10 Essential (primary) hypertension; D57.3 Sickle-cell trait; Z79.52 Long term (current) use of systemic steroids; E78.5 Hyperlipidemia, unspecified; G47.33 Obstructive sleep apnea (adult) (pediatric); Z91.14 Patient's other noncompliance with medication regimen; Z87.891 Personal history of nicotine dependence
CPT/HCPCS: 71045; 80048; 80053; 81001; 82010; 82550; 82552; 82805; 82947; 82948; 83036; 83605; 83735; 83880; 84100; 84484; 85007; 85027; 85610; 85730; 87040; 87070; 87205; 87449; 87641; 87804; 93005; 94618; 94640; 94664; 96361; 96365; J0456; J0696; J1650; J1815; J1817; J2405; J2920; J7030; J7050; J7512